=== PATIENT | female | born 1945 | race Caucasian/White ===

== ENCOUNTER → 2016-11-11 | Outpatient (CLI) | payer OTHER, BC ==
[~2016-11-11] MED LIST: ACET-1138 PO; ASCO1CAP3 PO; ASPCH81X PO; ASPEC325 PO; BACL10TA PO; CHOL100010 PO; COLL1CAP PO; DICL50TA3 PO; FRRG PO; GLUC15002 PO; MAGN400T6 PO; MULT1TAB22 PO; SIMV20TA5 PO; SYN100; SYN75 PO; ULT50X PO; VITATAB19 PO; ZINC1CAP PO; [UNRECOGNIZED DRUG - OTHER]
== END | disposition home or self-care (01) ==
LOC: C.RDSM 09:50
PROVIDERS: ATTEND Family Medicine Sports Medicine
DX: M54.5 Low back pain (principal); M25.551 Pain in right hip

== ENCOUNTER → 2016-11-28 | Outpatient (CLI) | payer OTHER, BC ==
--- NOTE | 2016-12-02 12:25 | CODING QUERY MEDICAL NECESSITY ---
SUPPORTING DIAGNOSIS NEEDED A supporting diagnosis is required for the test/procedure performed on this patient in order for us to be reimbursed by the patient's insurance. Please provide a supporting diagnosis for the following test/procedure listed below next to the test name along with your signature. *If there is no additional diagnosis for this patient that would support the following test/procedure please document that below next to the test/procedure. Test(s)/Procedure(s) that require a supporting diagnosis: DOS 11/28 * Bone Density Study DIAGNOSIS: Provider Signature: Date: Thank you Sera Granados Health Information Management Once completed, please kindly fax back to [phone] For questions please call [phone]
== END | disposition home or self-care (01) ==
LOC: C.MAMM 13:59
PROVIDERS: ATTEND Family Medicine Sports Medicine
DX: M84.48XA Pathological fracture, other site, initial encounter for fracture (principal); X58.XXXA Exposure to other specified factors, initial encounter; M85.80 Other specified disorders of bone density and structure, unspecified site; F17.200 Nicotine dependence, unspecified, uncomplicated

== ENCOUNTER → 2017-01-09 | Outpatient (CLI) | payer OTHER, BC ==
[2017-01-09 16:13] LABS: ALT/SGPT 28 U/L (12-78); AST/SGOT 20 U/L (15-37); BLOOD UREA NITROGEN 21 mg/dl (7-18); BUN/CREATININE RATIO 21.2 (10-20); CALCIUM 8.5 mg/dl (8.5-10.1); CARBON DIOXIDE 30 mmol/L (21-32); CHLORIDE 106 mmol/L (98-107); GLUCOSE 84 mg/dl (70-99); POTASSIUM 4.2 mmol/L (3.5-5.1); SODIUM 141 mmol/L (136-145)
[2017-01-09 16:21] LABS: ALB/GLOB RATIO 1.3 (0.9-2); ALKALINE PHOSPHATASE 96 U/L (45-117); CHOLESTEROL 172 mg/dl (0-200); CHOLESTEROL/HDL RATIO 2.5; HDL CHOLESTEROL 70 mg/dl; TRIGLYCERIDES 121 mg/dl (0-150); VERY LOW DENSITY LIPOPROT CALC 24 mg/dl
== END | disposition home or self-care (01) ==
LOC: C.LABSPEC 15:14
PROVIDERS: ATTEND Internal Medicine
DX: E03.9 Hypothyroidism, unspecified (principal); E78.5 Hyperlipidemia, unspecified

== ENCOUNTER → 2017-02-08 | Outpatient (CLI) | payer OTHER, BC ==
--- NOTE | 2017-02-08 16:05 | MAMMOGRAPHY REPORT ---
BILATERAL DIGITAL SCREENING MAMMOGRAM WITH CAD: 02/08/2017 CLINICAL HISTORY: Routine screening. Patient has no complaints. TECHNIQUE: Bilateral CC and MLO views were obtained. Current study was also evaluated with a Comput er Aided Detection (CAD) system. COMPARISON: Comparison is made to exams dated: 12/16/2015 mammogram, 12/24/2013 mammogram, 10/05/2012 mammogram, 10/25/2011 mammogram, 04/20/2011 ultrasound, and 04/20/2011 mammogram - [facility]. BREAST COMPOSITION: The tissue of both breasts is heterogeneously dense, which may obscure small ma sses. FINDINGS: The parenchymal pattern is unchanged. No developing mass, architectural distortion or clu ster of suspicious microcalcifications is seen in either breast. IMPRESSION: ACR BI-RADS CATEGORY 2: BENIGN There is no mammographic evidence of malignancy. A 1 year screening mammogram is recommended. The p atient will receive written notification of the results. Approximately 10% of breast cancers are not detected with mammography. A negative mammographic repor t should not delay biopsy if a clinically suggestive mass is present. Lucie Rodriguez M.D. ay/:02/08/2017 15:51:07 Cotton Ball Bagger: Lisa PEREZ(Evelyn)(Lisa), [facility] letter sent: Normal 1/2 BI-RADS Code: ACR BI-RADS Category 2: Benign
== END | disposition home or self-care (01) ==
LOC: C.MAMM 13:22
PROVIDERS: ATTEND Internal Medicine
DX: Z12.31 Encounter for screening mammogram for malignant neoplasm of breast (principal)

== ENCOUNTER → 2017-03-01 | Outpatient (CLI) | payer OTHER, BC ==
[~2017-03-01] MED LIST changes: +OPTIRAY 320 IV PRN; -SYN75 PO; -VITATAB19 PO
--- NOTE | 2017-03-01 14:04 | DIAGNOSTIC IMAGING REPORT ---
CT OF THE CHEST WITH IV CONTRAST CLINICAL HISTORY: Abnormal chest x-ray. COMPARISON STUDY: Chest x-ray dated 03/01/2017 TECHNIQUE: Following the IV administration of 94 mL of Optiray-320, CT of the thorax was performed from the thoracic inlet to the lung bases. Images are reviewed in the axial, sagittal, and coronal planes. IV contrast was administered without complication. CT DOSE: 413.25 mGycm FINDINGS: Thyroid: Imaged portions of the thyroid gland are normal in appearance. Thoracic aorta: The thoracic aorta is normal in course and caliber, noting standard 3-vessel arch anatomy. No aneurysm or dissection is seen. Pulmonary vasculature: The pulmonary trunk is normal in caliber. There are no central filling defects identified to suggest pulmonary embolus. Note that this examination was not protocoled for the evaluation of pulmonary emboli. HEART: The heart is normal in size and configuration, without pericardial effusion. Lungs and pleural spaces: There is a 4 cm pleural-based airspace opacity within the right middle lobe anteriorly. This contains air bronchograms. Also evident are airspace opacities within the right lower lobe. There is scattered right lower lobe nodules and tree-in-bud opacities. There is subtle left apical tree-in-bud nodularity. In the 12.5 mm irregular bilobed right apical pulmonary nodule Mediastinum: There is a borderline enlarged 1 cm upper right paratracheal/esophageal lymph node. Maeve: There is no evidence of pathologic hilar enlargement Axilla: Clear. Upper abdomen: There is moderate hiatal hernia Skeletal structures: There are no lytic or blastic osseous lesions. IMPRESSION: 1. 4 cm pleural-based airspace opacity within the right middle lobe anteriorly containing air bronchograms 2. Dependent right lower lobe airspace opacities 3. Scattered tree-in-bud opacities most pronounced in the right lower lobe 4. Irregular bilobed 12.5 mm right apical pulmonary nodule 5. Borderline enlarged right upper paratracheal/esophageal lymph node 6. A 6 week follow-up chest CT is recommended subsequent to antibiotic therapy. Electronically signed by: Jacob Tariq M.D. 03/01/2017 2:03 PM Dictated Date/Time: 03/01/2017 1:53 PM
== END | disposition home or self-care (01) ==
LOC: C.CTS 13:21
PROVIDERS: ATTEND Orthopaedic Surgery Sports Medicine
DX: R91.8 Other nonspecific abnormal finding of lung field (principal)

== ENCOUNTER → 2017-03-15 | Outpatient (CLI) | payer OTHER, BC ==
[~2017-03-15] MED LIST changes: -OPTIRAY 320 IV PRN
--- NOTE | 2017-03-15 11:30 | DIAGNOSTIC IMAGING REPORT ---
CHEST 2 VIEWS ROUTINE CLINICAL HISTORY: BRONCHOPNEUMONITIS COMPARISON STUDY: 02/27/2017 FINDINGS: The cardiac and mediastinal contours are normal. There is no evidence of focal pulmonary consolidation. There is no evidence of failure. No pleural effusions are visualized.[ There is a retrocardiac opacity consistent with a hiatal hernia. There is been near complete resolution of the previous described right perihilar airspace opacities IMPRESSION: No active disease in the chest. Electronically signed by: Jacob Tariq M.D. 03/15/2017 11:28 AM Dictated Date/Time: 03/15/2017 11:27 AM
== END | disposition home or self-care (01) ==
LOC: C.RAD 10:51
PROVIDERS: ATTEND Internal Medicine
DX: J18.0 Bronchopneumonia, unspecified organism (principal)

== ENCOUNTER 2017-03-23 05:35 | Inpatient (IN) | payer OTHER, BC ==
[2017-02-27 09:12] VITALS: Ht 165.1 cm; Wt 67.3 kg
--- NOTE | 2017-02-27 09:51 | PAT Medication Instructions ---
Service Date February 27, 2017. Current Home Medication List Ascorbic Acid (Vitamin C), 1,000 MG PO DAILY AT NOON Aspirin (Aspirin Chewable), 81 MG PO DAILY AT NOON Baclofen (Lioresal), 10 MG PO TID PRN for Pain Cholecalciferol (Vitamin D), 1 TAB PO DAILY AT NOON Ndefniyf-Gvwmlujtwvb-Torzkfkkj (Hyaluronic Acid), 100 MG PO QAM Iqkjfmsc-Ipqclejlgpm-Uhjyffobp (Hyaluronic Acid), 100 MG PO QPM Diclofenac (Voltaren), 1-2 TAB PO Q8 PRN for INFLAMMATION Vylcbutjkcv-Wkufizfurul-Lpt C- (Glucosamine 1500 Complex), 1 TAB PO QPM Levothyroxine Sodium (Synthroid), Unknown Dose QAM Multiple Vitamins W/ Minerals (One Daily For Women), 1 TAB PO DAILY AT NOON Simvastatin (Zocor), 20 MG PO QPM Medication Instructions For Your Scheduled Surgery Aspirin (Aspirin Chewable), 81 MG PO DAILY AT NOON (okay to continue per surgeon ) - Check with surgeon for instructions: Diclofenac (Voltaren), 1-2 TAB PO Q8 PRN for INFLAMMATION - Hold the following medications 2 weeks prior to surgery: Ewkqswhnsdc-Vtynslmkhaj-Vti C- (Glucosamine 1500 Complex), 1 TAB PO QPM - Hold the following medications the morning of surgery: Multiple Vitamins W/ Minerals (One Daily For Women), 1 TAB PO DAILY AT NOON Cholecalciferol (Vitamin D), 1 TAB PO DAILY AT NOON Ascorbic Acid (Vitamin C), 1,000 MG PO DAILY AT NOON Baclofen (Lioresal), 10 MG PO TID PRN for Pain Tnguieii-Cpwvekfmhsp-Iycbzxxok (Hyaluronic Acid), 100 MG PO QAM - Take the following medications the morning of surgery with a sip of water: Levothyroxine Sodium (Synthroid), Unknown Dose QAM - Take the following medications as scheduled the night before surgery: Simvastatin (Zocor), 20 MG PO QPM Baclofen (Lioresal), 10 MG PO TID PRN for Pain Kuutokwt-Xldtwgjzdfq-Mutwvzeot (Hyaluronic Acid), 100 MG PO QPM If you have any questions please call us at [phone] (Christy Varghese PA-C) or [phone] or [phone]
--- NOTE | 2017-02-27 10:28 | DIAGNOSTIC IMAGING REPORT ---
CHEST PREADMISSION(PA/LAT) CLINICAL HISTORY: Preoperative chest COMPARISON STUDY: February 2008 FINDINGS: The cardiac and mediastinal contours remain stable. There is a retrocardiac opacity consistent with a hiatal hernia. Since the prior study, the patient has developed a nodular airspace opacity within the anterior inferior aspect of the right upper lobe measuring 26 mm. In the absence of symptoms of a pneumonia, CT scanning should be considered in follow-up. No pleural effusions are visualized.[ IMPRESSION: Interval development of a nonspecific nodular airspace opacity within the anterior inferior aspect of the right upper lobe. CT scanning should be considered in follow-up. Electronically signed by: Jacob Tariq M.D. 02/27/2017 10:27 AM Dictated Date/Time: 02/27/2017 10:25 AM
[2017-02-27 10:54] LABS: BASO % 0.7 %; BASO ABS # 0.06 K/uL (0-0.2); COMPLETE YES; EOS % 1.1 %; HEMATOCRIT 38.6 % (37-47); IG% 0.1 %; LYMPH % 24.4 %; LYMPH ABS # 2.19 K/uL (1.2-3.4); MEAN CELL VOLUME 97.5 fL (80-100); MEAN CORPUSCULAR HEMOGLOBIN 31.3 pg (25-34); MEAN CORPUSCULAR HGB CONC 32.1 g/dl (32-36); MEAN PLATELET VOLUME 9.8 fL (7.4-10.4); MONO % 8.5 %; NEUT % 65.2 %; PLATELET COUNT 439 K/uL (130-400); RED BLOOD COUNT 3.96 M/uL (4.2-5.4); WHITE BLOOD COUNT 8.96 K/uL (4.8-10.8)
[2017-02-27 11:03] LABS: BUN/CREATININE RATIO 17.8 (10-20); C-REACTIVE PROTEIN 3.62 mg/dl (0-0.29); CREATININE 0.82 mg/dl (0.60-1.20); POTASSIUM 4.3 mmol/L (3.5-5.1)
[2017-02-27 11:14] LABS: CALCIUM 9.1 mg/dl (8.5-10.1)
[2017-02-27 11:15] LABS: PROTHROMBIN TIME (PATIENT) 10.7 SECONDS (9.0-12.0)
--- NOTE | 2017-03-18 20:21 | HISTORY & PHYSICAL EXAMINATION ---
DATE OF ADMISSION: 03/23/2017 CHIEF COMPLAINTS: Right hip pain. HISTORY OF PRESENT ILLNESS: A 72-year-old female from [place] who presents for surgical treatment of her right hip. This all had started back in May of this past year. She developed pretty significant thigh and groin pain. She saw Dr. Boyle at that point and felt it was a muscle spasm. She was put on some prednisone, diclofenac and baclofen. She continued to have problems on and off. She has been on different medicines trying to manage this. She was diagnosed with Lyme disease in September and underwent a month of treatment for that. Despite this, she has developed progressive increased pain and discomfort in the right hip. She has been pretty miserable with this. She describes groin pain and thigh pain. She had an intra-articular hip joint injection, which helped her significantly but her pain returned. X-rays show advanced right hip DJD. She would like to proceed with total hip arthroplasty. Of note, the patient did have a recent history of some bronchopneumonitis managed by Dr. Boyle. This is cleared up and she has been cleared for surgery. PAST MEDICAL HISTORY: 1. Elevated cholesterol. 2. Hypothyroidism. 3. Spinal arthritis. 4. Colon cancer, status post resection without recurrence. PREVIOUS SURGERIES: Colon resection. ALLERGIES: None. MEDICATIONS: Include: 1. Levothyroxine. 2. Simvastatin. 3. Ibuprofen. SOCIAL HISTORY: A 72-year-old female patient. She is . She is from [place]. Medical doctor is Dr. Boyle. REVIEW OF SYSTEMS: Negative for diabetes. She does have a history of colon cancer in remission. No chest pain, shortness of breath. No history of DVT or PE. PHYSICAL EXAMINATION: GENERAL: Shows a pleasant, thin, elderly female. She looks to be in excellent health. HEENT: Benign. NECK: Supple. No lymphadenopathy. LUNGS: Clear to auscultation. HEART: Regular rate and rhythm. ABDOMEN: Soft, nontender, nondistended. EXTREMITIES: Grossly neurovascularly intact as follows. Examination of the right hip and leg reveals the patient walks independently, but with a bit of a limp. Leg lengths clinically appear pretty equal. She has pain with any type of hip motion. Internal rotation to neutral at best. She is neurologically intact. Negative straight leg raise. X-RAYS: X-rays of the right hip reveal advanced right hip DJD. She has complete loss of joint space. Not a lot of osteophyte formation. MRI of the hip from [facility] dated 11/14/2016 reviewed. It shows significant arthritis in her hip. She has edema in superior aspect of femoral head into the intertrochanteric region. She has a hip joint effusion. No signs of AVN, but more like degenerative arthritis. ASSESSMENT: A 72-year-old female with a 7-month history of markedly increased right hip pain, discomfort consistent with advanced hip arthritis. She has failed conservative treatment and would like to have her hip replaced. She has had recent bout of bronchopneumonitis which is cleared on treatment by Dr. Boyle. She also has history of Lyme disease, which has been treated. PLAN: We are going to take her to the operating room and do a right total hip replacement. The risks and benefits of this procedure were explained to the patient, included but not limited to DVT, PE, , infection, neurological injury, vascular injury, bleeding problems, pain, limited range of motion, stiffness, failure to relieve symptoms, incomplete relief of symptoms, need for further surgery in the future, leg length inequality, nerve palsy, dislocation, fractures. The patient understands and desires to proceed. Informed consent was obtained. The patient had a preoperative workup. Chest x-ray initially showed some nodularity and she had a CT scan which confirmed this. She was treated for this bronchopneumonitis and chest x-ray is normalized. Labs are all pretty normal, but her sed rate and C-reactive protein were elevated at the time when she had this bronchopneumonitis, but that is probably the source. Her infection is cleared. She has been cleared for surgery. She is hoping to be discharged to home using [facility]. Her is going to assist in her care. JOSE
[2017-03-23] VITALS (9 sets, daily range): BP systolic 114–144; BP diastolic 58–90; PULSE 57–67; TEMP 36.3–36.8; O2SAT 95–100
[~2017-03-23] VITALS: Ht 165.1 cm; Wt 67.3 kg
[~2017-03-23 05:35] MED LIST changes: -ACET-1138 PO; -ASPEC325 PO; -FRRG PO; -MAGN400T6 PO; -ULT50X PO; -ZINC1CAP PO; -[UNRECOGNIZED DRUG - OTHER]
[2017-03-23] MEDS ORDERED: LACTATED RINGER'S 1000ML 1,000 ML IV SCH (06:00)
[2017-03-23] MEDS ORDERED: LACTATED RINGER'S 1000ML IV SCH (06:00)
[2017-03-23] MEDS ORDERED: ACETAMINOPHEN 500 MG TAB PO SCH (06:00)
[2017-03-23] MEDS ORDERED: CEFAZOLIN 2000 MG/60 ML D5W 60 ML IV SCH (06:00)
[2017-03-23] MEDS ORDERED: FAMOTIDINE 20 MG TAB PO SCH (06:00)
[2017-03-23] MEDS ORDERED: METOCLOPRAMIDE HCL 10 MG TAB PO SCH (06:00)
[2017-03-23] MEDS ORDERED: SCOPOLAMINE 1.5 MG TDSY TD SCH (06:00)
[2017-03-23] MEDS ORDERED: TRANEXAMIC ACID INJ 1,000 MG in SODIUM CHLORIDE 0.9% 100ML 100 ML IV SCH ×2 (06:00→14:00)
[2017-03-23] MEDS ORDERED: GABAPENTIN 300 MG CAP PO SCH (06:00)
[2017-03-23] MEDS ORDERED: LACTATED RINGER'S 1000ML 500 ML IV ONE (06:00)
[2017-03-23] MEDS ORDERED: [UNRECOGNIZED DRUG - OTHER] (06:09)
[2017-03-23] MEDS ORDERED: ZINC1CAP PO (06:09)
[2017-03-23] MEDS ORDERED: MAGN400T6 PO (06:09)
[2017-03-23] MEDS ORDERED: BUPIVACAINE 0.5 % 5 MG/1 ML PF 10ML VIAL ONE (06:38)
--- NOTE | 2017-03-23 06:51 | History & Physical Bridge Note ---
H&P Re-Evaluation Bridge Note: I have examined the patient, reviewed the History & Physical and in the interval since the performance of the History & Physical I have noted the following changes of clinical significance: No changes noted
[2017-03-23] MEDS ORDERED: BACITRACIN 50000 UNIT VIAL ONE (06:55)
[2017-03-23] MEDS ORDERED: BUPIVACAINE/EPINEPHRINE 0.5% MPF 1:200,000 30 ML VIAL ONE (06:55)
[2017-03-23] MEDS ORDERED: FENTANYL CITRATE INJ 50 MCG/1 ML 2 ML VIAL ONE (06:59)
[2017-03-23] MEDS ORDERED: MIDAZOLAM HCL 1 MG/ML 2ML VIAL ONE (06:59)
[2017-03-23] MEDS ORDERED: KETAMINE HCL INJ 50 MG/ML 10 ML VIAL ONE (07:08)
[2017-03-23] MEDS ORDERED: PROPOFOL IV EMULSION 10 MG/ML 20 ML VIAL IV ONE (07:57)
[2017-03-23] MEDS ORDERED: PHENYLEPHRINE 100MCG/ML 5ML SYR ONE (07:57)
[2017-03-23] MEDS ORDERED: EpHEDrine SULFATE 50MG/5ML SYR ONE (07:57)
[2017-03-23] MEDS ORDERED: LIDOCAINE HCL 2% 2 ML VIAL (20MG/ML) ONE (07:57)
[2017-03-23] MEDS ORDERED: HYDROmorphone INJ 2 MG/ML SYR/VIAL IV PRN (08:45)
[2017-03-23] MEDS ORDERED: EpHEDrine SULFATE INJ 50 MG/ML AMP IV PRN (08:45)
[2017-03-23] MEDS ORDERED: PHENYLEPHRINE 100MCG/ML 5ML SYR IV PRN (08:45)
[2017-03-23] MEDS ORDERED: ONDANSETRON INJ 2 MG/ML 2 ML VIAL IV PRN ×2 (08:45→09:00)
[2017-03-23] MEDS ORDERED: ATROPINE SULFATE 0.1 MG/ML 5ML SYR IV PRN (08:45)
--- NOTE | 2017-03-23 08:55 | [facility] Post Operative Brief Note ---
Immediate Operative Summary Operative Date March 23, 2017. Pre-Operative Diagnosis Advanced right hip degenerative joint disease Post-Operative Diagnosis Same as preop Procedure(s) Performed Right total hip arthroplasty, uncemented Surgeon Dr. Tovar Elementary Educator Surgeon(s) Shadia Henson PA-C Estimated Blood Loss 300 cc Findings Right Hip DJD Fluids (cc crystalloids) 2000 cc Specimens A: right femoral head Drains None Anesthesia Spinal Complication(s) None Disposition Recovery Room / PACU
[2017-03-23] MEDS ORDERED: ALUMINUM/MAGNESIUM/SIMETH (MAALOX MAX) 30 ML UDC PO PRN (09:00)
[2017-03-23] MEDS ORDERED: ZOLPIDEM TARTRATE 5 MG TAB PO PRN (09:00)
[2017-03-23] MEDS ORDERED: TRAMADOL HCL 50 MG TAB PO PRN (09:00)
[2017-03-23] MEDS ORDERED: BACLOFEN 10 MG TAB PO PRN (09:00)
[2017-03-23] MEDS ORDERED: HYDROmorphone INJ 1 MG/ML SYR IV PRN (09:00)
[2017-03-23] MEDS ORDERED: METOCLOPRAMIDE HCL INJ 5 MG/ML 2 ML VIAL IV PRN (09:00)
[2017-03-23] MEDS ORDERED: MAGNESIUM HYDROXIDE SUSP 30 ML UDC PO PRN (09:00)
[2017-03-23] MEDS ORDERED: SILVER SULFADIAZINE 1% CR 50 GM JAR EXT PRN (09:00)
--- NOTE | 2017-03-23 09:38 | DIAGNOSTIC IMAGING REPORT ---
SINGLE VIEW PELVIS; SINGLE VIEW RIGHT HIP CLINICAL HISTORY: Postoperative examination. FINDINGS: An AP portable view of the hips and pelvis with a crosstable lateral portable view of the right hip are obtained. A bipolar right hip arthroplasty is in near-anatomic alignment. A single cortical lag screw transfixes the acetabular cup. No acute fracture is identified. There are expected postoperative changes overlying the right hip including skin clips, subcutaneous gas, and soft tissue swelling. Mild arthritic change is present in the left hip and the sacroiliac joints. A Rebolledo catheter is in place. IMPRESSION: Expected postoperative findings status post right hip arthroplasty. No acute fracture is seen. Electronically signed by: Yoan Mckeon M.D. 03/23/2017 9:37 AM Dictated Date/Time: 03/23/2017 9:36 AM
--- NOTE | 2017-03-23 09:42 | OPERATIVE REPORT ---
DATE OF OPERATION: 03/23/2017 SURGEON: Dr. Angel Tovar. POULTRY HUSBANDRY WORKER: ARASH Santos PREOPERATIVE DIAGNOSIS: Right hip degenerative joint disease. POSTOPERATIVE DIAGNOSIS: Same. PROCEDURE PERFORMED: Right uncemented total hip arthroplasty. COMPLICATIONS: None. ESTIMATED BLOOD LOSS: 300 mL. FLUID REPLACEMENT: 2000 mL crystalloid fluid replacement. ANESTHESIA: Spinal. DRAINS: None. SPECIMENS: Right femoral head sent for pathology. OPERATIVE INDICATIONS: The patient is a 72-year-old female who has had about a year history of increasing right hip pain and discomfort and she has become more disabling. She has been through extensive conservative treatment including pain clinic referral, injections and oral medicines. She got marked relief from the intraarticular hip joint injection. She has got known spine arthritis as well. X-rays showed advanced hip DJD. The patient elected to proceed with operative treatment. OPERATIVE FINDINGS: Operative findings revealed advanced right hip DJD. She had grade 4 rpli-lq-clml disease of the femoral head and acetabulum. Not much in the way of eburnation. She had a moderate sized joint effusion. OPERATIVE IMPLANTS: Operative implants consisted of: 1. Biomet G7 size 52-mm acetabular shell. 2. A 6.5 cancellous acetabular screws, 1 at 35 mm length and 1 at 20 mm in length. 3. An apex hole eliminator. 4. Highly cross-linked polyethylene liner with 52 mm outer diameter and 36 mm inner diameter. 5. A DePuy size 13.5 small stature AML femoral stem. 6. A +1.5/36 mm metal articular ball. OPERATIVE PROCEDURE: The patient was taken to the operating room, identified and placed on the operating table in the supine position. All contact areas were appropriately padded. IV antibiotics were provided by anesthesia team. A spinal anesthetic had been implemented in the holding area. Rebolledo catheter was placed in sterile fashion. The patient was then placed in the right lateral decubitus position. An axillary roll was placed. Stulberg hip positioner was used for positioning. The right hip and leg were then prepped and draped in the usual sterile fashion. Posterolateral approach to the right hip was then performed through a curvilinear incision centered over the greater trochanter. Sharp dissection was carried through the subcutaneous tissues down to the level of the IT band and gluteal fascia. The IT band and gluteal fascia were incised longitudinally in line with the skin incision. The underlying greater trochanteric bursa was excised. The piriformis and external rotators were identified. Upon doing this, there was a large vein, which ruptured in the posterior aspect of the hip posteriorly. We spent some time trying to very carefully cauterize this to get hemostasis. It was a vein. Great care was taken to try and protect the sciatic nerve at all times, but it was posterior in that area. There were no signs of any nerve irritation during cauterizing this. Once hemostasis was assured, I then incised the external rotators and the posterior hip capsule as a single layer. The hip was internally rotated and dislocated. Great care was taken throughout the procedure to protect the sciatic nerve at all times. The femur was retracted anteriorly. Attention was then drawn to the acetabulum. The acetabulum labrum was excised. The pulvinar fat was excised. Sequential reaming of the acetabulum was then performed beginning with size 45 and progressing up to a 51. A 52-mm Biomet G7 acetabular shell was then placed in about 40 degrees of lateral opening and about 25 degrees of anteversion. I did place it in a little more anteversion as she had pretty good hip motion preoperatively and I was concerned with stability. Some anterior osteophytes were removed. A trial liner was placed. Attention was then drawn to the femur. The proximal femur was entered with cookie cutter followed by canal finder and lateralizing reamer. Sequential reaming of the femur was then performed beginning with a size 10 and progressing up to a 13. We started getting pretty good chatter at 12. I then broached beginning with a size 10.5 small broach and progressing up to 13.5 small broach. We got excellent fit with this. We then trialed the hip. The +5 ball seemed a bit tight. The +1.5 articular ball provided full stability in full extension and external rotation, flexion to 90 degrees, and internal rotation to 70 degrees. I elected to use these implants. I did use a slightly larger head than the usual in order to maximize her stability. Attention was drawn toward placing the permanent implants. All trial implants were removed. An apex hole eliminator was placed. A highly cross-linked polyethylene liner was placed. A 13.5 small stature AML femoral stem was placed. We got excellent scratch fit. A +1.5/36 mm articular ball was placed. Hip was located and once again found to be stable. The attention was then drawn toward closing. The wound was irrigated with copious amounts of normal saline. I did inject locally with 60 mL of 0.5% Marcaine with epinephrine. The posterior capsule was then repaired with #2 Ti-Cron sutures. The external rotators were attached to this. The IT band and gluteal fascia were then closed with #1 PDS suture in a running fashion. Subcutaneous tissues were closed in 2 layers with the deep layer #1 Vicryl suture and the subcutaneous tissues with 2-0 Dexon suture in a buried interrupted fashion. Skin was closed with skin miguel. The leg was then cleaned and dried and a sterile dressing of Xeroform, 4 x 4's, ABD pad and foam tape was applied. The patient then transferred to the recovery room in stable condition. The patient tolerated the procedure well with no complications. All needle and sponge counts were correct at the end of the operation. I attest to the content of the Intraoperative Record and any orders documented therein. Any exceptio ns are noted below.
--- NOTE | 2017-03-23 09:44 | Anesthesiology Progress Note ---
Anesthesia Post Op Note Date & Time March 23, 2017 at 09:43 Vital Signs Pain Intensity: 0 Vital Signs Past 12 Hours Date Time Temp Pulse Resp B/P Pulse Ox O2 Delivery O2 Flow Rate FiO2 03/23/17 09:38 58 19 03/23/17 09:38 58 19 100 03/23/17 09:36 107/51 03/23/17 09:33 59 17 03/23/17 09:33 58 17 100 03/23/17 09:31 115/58 03/23/17 09:28 61 14 100 03/23/17 09:28 61 14 03/23/17 09:26 124/48 03/23/17 09:23 68 20 96 03/23/17 09:23 67 20 03/23/17 09:22 62 14 03/23/17 09:22 62 14 100 03/23/17 09:21 142/67 03/23/17 09:17 62 13 100 03/23/17 09:17 62 13 03/23/17 09:16 135/69 03/23/17 09:12 62 15 03/23/17 09:12 63 15 87 03/23/17 09:11 130/61 03/23/17 09:07 60 19 03/23/17 09:07 60 19 100 03/23/17 09:06 123/60 03/23/17 09:03 61 17 03/23/17 09:03 63 17 100 03/23/17 09:01 107/65 03/23/17 08:58 61 17 100 03/23/17 08:58 61 17 03/23/17 08:56 126/63 03/23/17 08:53 59 17 100 03/23/17 08:53 60 17 03/23/17 08:51 124/63 03/23/17 08:49 130/63 03/23/17 08:48 62 13 100 03/23/17 08:48 62 13 03/23/17 08:48 36.1 61 18 130/63 100 Mask 10 03/23/17 06:13 36.8 67 18 144/81 97 Room Air Notes Mental Status: alert / awake / arousable, participated in evaluation Pt Amnestic to Procedure: Yes Nausea / Vomiting: adequately controlled Pain: adequately controlled Airway Patency, RR, SpO2: stable & adequate BP & HR: stable & adequate Hydration State: stable & adequate Anesthetic Complications: no major complications apparent
[2017-03-23] MEDS ORDERED: TRAMADOL HCL 50 MG TAB ONE (11:08)
[2017-03-23] MEDS: MULTIVITAMIN TAB PO SCH (11:09)
[2017-03-23] MEDS: PANTOprazole SOD 40 MG TAB PO SCH (11:10)
[2017-03-23] MEDS: MAGNESIUM OXIDE 400 MG TAB PO SCH (11:13)
[2017-03-23] MEDS: CHOLECALCIFEROL 1000 INTER.UNIT TAB PO SCH (11:14)
[2017-03-23] MEDS: CEROVITE ADV FORMULA TAB PO SCH (11:14)
[2017-03-23] MEDS ORDERED: PNEUMOCOCCAL ADMINISTRATION CHARGE ONE (11:45)
[2017-03-23] MEDS ORDERED: PNEUMOCOCCAL POLYSACCHARIDES 25 MCG/0.5 ML VIAL/SYR IM. ONE (11:45)
[2017-03-23] MEDS: ZINC SULFATE 220 MG CAP PO SCH (11:56)
[2017-03-23] MEDS: D5W AND 1/2NSS + 20MEQ KCL 1,000 ML IV SCH ×2 (12:02→21:02)
[2017-03-23] MEDS: KETOROLAC TROMETHAMINE 15 MG/ML VIAL IV. SCH ×2 (12:13→18:19)
[2017-03-23] MEDS: ASCORBIC ACID 500 MG TAB PO SCH (12:34)
[2017-03-23] MEDS: FERROUS GLUCONATE 324 MG TAB PO SCH ×2 (12:34→18:20)
[2017-03-23] MEDS: ACETAMINOPHEN 500 MG TAB PO SCH ×2 (13:26→22:00)
--- NOTE | 2017-03-23 15:31 | PROGRESS NOTE ---
DATE: 03/23/2017 SUBJECTIVE: A 72-year-old female postop from a right hip replacement. She is doing pretty well. Pain is controlled. No chest pain or shortness of breath. Not feeling dizzy or lightheaded. OBJECTIVE: VITAL SIGNS: Temperature is 36.4. Vital signs stable. GENERAL: Physical examination reveals a healthy pleasant elderly female. She is sitting up in bed and looks pretty comfortable. LUNGS: Clear to auscultation. HEART: Regular rate and rhythm. ABDOMEN: Soft, nontender, and nondistended. EXTREMITIES: Grossly neurovascularly intact except as follows: Examination of the right leg reveals the dressing to be clean, dry and intact. Leg lengths were equal. Hip is located. She can dorsiflex and plantarflex her foot appropriately. She is neurologically intact. X-RAYS: X-rays of the right hip from the recovery room were reviewed. It shows a right uncemented total hip arthroplasty. Components looked to be in good position. No signs of problems. ASSESSMENT: A 72-year-old gentleman postop from a right total hip replacement, doing well. Pain is controlled. Hip is located. She is neurologically intact. PLAN: 1. DVT prophylaxis including thigh-high TEDs, SCDs, and aspirin twice a day. 2. PT/OT. Weightbearing as tolerated. Right total hip protocol. 3. Pain control, doing well with current pain regimen. 4. IV antibiotics x24 hours. 5. Disposition: Plan to discharge to home with some home health once adequately recovered. JOSE
[2017-03-23] MEDS: CHECK SCOPOLAMINE PATCH PLACEMENT SCH (17:11)
[2017-03-23] MEDS: CEFAZOLIN IV 1,000 MG in DEXTROSE 5% 50ML 50 ML IV SCH (17:11)
[2017-03-23] MEDS ORDERED: GLUCOSAMINE CHONDROITIN VIT C PO SCH (21:00)
[2017-03-23] MEDS: ASPIRIN 325 MG ECTAB PO SCH (21:01)
[2017-03-23] MEDS: SENNA 8.6 MG TAB PO SCH (21:01)
[2017-03-23] MEDS: DOCUSATE SODIUM 100 MG CAP PO SCH (21:01)
[2017-03-23] MEDS: SIMVASTATIN 20 MG TAB PO SCH (21:02)
[2017-03-24] MEDS: CHECK SCOPOLAMINE PATCH PLACEMENT SCH ×3 (00:14→15:45)
[2017-03-24] MEDS: CEFAZOLIN IV 1,000 MG in DEXTROSE 5% 50ML 50 ML IV SCH (00:15)
[2017-03-24] MEDS: KETOROLAC TROMETHAMINE 15 MG/ML VIAL IV. SCH ×4 (00:16→17:53)
[2017-03-24 02:58] VITALS: BP 157/73; PULSE 69; TEMP 36.8; O2SAT 95
[2017-03-24] MEDS: ACETAMINOPHEN 500 MG TAB PO SCH ×3 (05:31→21:27)
[2017-03-24 06:30] LABS: BASO % 0.5 %; BASO ABS # 0.03 K/uL (0-0.2); COMPLETE YES; EOS % 3.4 %; HEMATOCRIT 31.7 % (37-47); LYMPH % 28.7 %; LYMPH ABS # 1.86 K/uL (1.2-3.4); MEAN CELL VOLUME 98.4 fL (80-100); MEAN CORPUSCULAR HEMOGLOBIN 32.9 pg (25-34); MEAN CORPUSCULAR HGB CONC 33.4 g/dl (32-36); MEAN PLATELET VOLUME 10.2 fL (7.4-10.4); MONO % 8.2 %; NEUT % 59.2 %; PLATELET COUNT 203 K/uL (130-400); RED BLOOD COUNT 3.22 M/uL (4.2-5.4); WHITE BLOOD COUNT 6.49 K/uL (4.8-10.8)
[2017-03-24] MEDS: D5W AND 1/2NSS + 20MEQ KCL 1,000 ML IV SCH (06:45)
[2017-03-24 07:01] LABS: BUN/CREATININE RATIO 19.9 (10-20); CALCIUM 7.7 mg/dl (8.5-10.1); CREATININE 0.86 mg/dl (0.60-1.20); POTASSIUM 4.7 mmol/L (3.5-5.1)
[2017-03-24 07:09] VITALS: BP 144/74; PULSE 63; TEMP 36.7; O2SAT 95
[2017-03-24] MEDS ORDERED: FRRG PO (07:21)
[2017-03-24] MEDS ORDERED: ULT50X PO (07:21)
[2017-03-24] MEDS ORDERED: ACET-1138 PO (07:21)
[2017-03-24] MEDS ORDERED: ASPEC325 PO (07:21)
--- NOTE | 2017-03-24 07:22 | Discharge Instructions ---
Discharge Instructions Date of Service March 24, 2017. Admission Reason for Admission: Right Hip Pain/Degenerative Joint Disease Discharge Discharge Diagnosis / Problem: Right Hip Replacement Discharge Goals Goal(s): Decrease discomfort, Improve function, Increase independence, Improve disease control, Therapeutic intervention Activity Recommendations Activity Limitations: per Instructions/Follow-up section (Total Hip PRecautions ) Weightbearing Status: Right weightbearing . Instructions / Follow-Up Instructions / Follow-Up ACTIVITY RECOMMENDATIONS: Physical Therapy: * Aggressive physical therapy is not usually needed. You will learn to take care of yourself safely and walk. * Follow the "Hip Precautions Instructions." * In some cases, the social science professor at the hospital will arrange to have a therapist come to your house for the first couple of weeks to help you learn these skills. * You need to practice on your own or with the help of a family member as needed. * When you learn these skills, most of the therapy can be done on your own. Home Exercise: * You were shown a series of exercises in the hospital. Do these exercises three to four times each day including the exercises you were shown in physical therapy. Walking: * Get up and walk several times each day. For the first four weeks, try not to stand or walk for more than one hour at a time. If you do stand or walk for more than one hour, you will not hurt anything, but your leg will likely swell. * As you feel comfortable, you may change from the walker or crutches to a cane and then to independent walking. MEDICATIONS: New Medicine: * You will likely be taking one or more of these medicines: 1. Tramadol - Take, as directed, when you need it, every four to six hours to control your pain. 2. Iron Sulfate - Take three times each day for the month after surgery to help you replace the blood lost during surgery. 3. Aspirin - Thins your blood to lessen the chance of forming a blood clot. * The most common side effects of pain medicine and iron are nausea and constipation. If nausea or constipation is too much of a problem or if you have any questions about your new medicines or doses, call [facility] at . We will try to help you manage these issues. VERY IMPORTANT TO READ AND REVIEW" Pain: * The immediate post-operative period after hip replacement surgery is often quite painful. * You are given a prescription for pain medicine. You should take it, as directed, when you need it, especially before physical therapy and before going to bed. Pain that interferes with sleep is very common and can last several months. * You will likely need pain medicine for the first two to four weeks. It will not stop all of the pain. The pain will lessen and as you feel better, you may change to milder pain medicine such as Tylenol. * The most common side effects of pain medicine are nausea and constipation, so don't take more than you need. SPECIAL CARE INSTRUCTIONS: TEDs/Elastic Stockings: * The white elastic stockings help limit swelling and prevent blood clots from forming in your legs. The more you wear them, the more they work. * Wear them for six weeks. Prevention of Infection: * Take antibiotics one hour before any dental cleaning, dental work, urological procedure, gastrointestinal procedure or any invasive surgery in order to prevent your new joint from getting infected. * You may get the antibiotics from the doctor performing the procedure or you may call our office at before and we will call in a prescription to the pharmacy of your choice. Things to Watch For: * Drainage from the incision site that occurs more than one week after your surgery. * Severely increased leg pain or swelling. * Increased redness at the incision site. * Fever above 102 degrees Fahrenheit. * Unusual chest pain or shortness of breath. * Unusual pain or burning with urination. Call [facility] at with any of the above problems or if you have any questions about your medicines or recovery. FOLLOW UP VISIT: Make an appointment to see your doctor for approximately two weeks after surgery for a progress check and staple removal by calling the office at . Current Hospital Diet Patient's current hospital diet: Regular Diet Discharge Diet Recommended Diet: Regular Diet Procedures Procedures Performed: Right total hip arthroplasty, uncemented Pending Studies Studies pending at discharge: no Laboratory Results Lipid Panel Test 01/09/17 13:40 Range/Units Triglycerides Level 121 0-150 mg/dl Cholesterol Level 172 0-200 mg/dl HDL Cholesterol 70 mg/dl LDL Cholesterol Direct 90 mg/dl Cholesterol/HDL Ratio 2.5 LDL Cholesterol, Calculated mg/dl Medical Emergencies . Who to Call and When: Medical Emergencies: If at any time you feel your situation is an emergency, please call 911 immediately. . Non-Emergent Contact Non-Emergency issues call your: Surgeon . "Provider Documentation" section prepared by Angel Tovar. . VTE Core Measure Inpt VTE Proph given/why not?: Other Anticoagulation, T.E.D. Stockings, SCD's
--- NOTE | 2017-03-24 07:46 | PROGRESS NOTE ---
DATE: 03/24/2017 DATE: 03/24/2017. SUBJECTIVE: A 72-year-old white female postop day 1 from right total hip replacement. She is doing pretty well. Pain has been managed. No chest pain or shortness of breath. Not feeling dizzy or lightheaded. OBJECTIVE: VITAL SIGNS: Temperature is 36.8. Vital signs stable. PHYSICAL EXAMINATION: GENERAL: Reveals a pleasant elderly female. She is lying in bed, looks pretty comfortable. EXTREMITIES: Examination of the right hip reveals leg lengths to be equal. Dressing is clean, dry and intact. Thigh is soft and supple. She is neurologically intact. LABORATORY DATA: Hemoglobin 10.6. Hematocrit 31.7. Electrolytes are pending. ASSESSMENT: A 72-year-old white female postop day 1 from a right total hip replacement, doing pretty well. Pain is controlled. PLAN: 1. DVT prophylaxis including thigh-high TEDs, SCDs, and aspirin twice a day. 2. PT/OT. Weightbearing as tolerated. Right total hip protocol. 3. Pain control. Doing pretty well with current pain regimen. We will try and manage using as little narcotic as possible. 4. Disposition: Plan to discharge to home with some home health once adequately recovered.
--- NOTE | 2017-03-24 08:12 | Anesthesiology Progress Note ---
Anesthesia Post Op Note Date & Time March 24, 2017 at 08:12 Vital Signs Pain Intensity: 1.0 Vital Signs Past 12 Hours Date Time Temp Pulse Resp B/P Pulse Ox O2 Delivery O2 Flow Rate FiO2 03/24/17 07:26 Room Air 03/24/17 07:09 36.7 63 17 144/74 95 Room Air 03/24/17 02:58 36.8 69 18 157/73 95 Room Air 03/23/17 23:40 Room Air 03/23/17 23:10 36.8 63 17 136/90 98 Room Air 03/23/17 20:18 36.8 58 16 114/58 95 Room Air Notes Mental Status: alert / awake / arousable, participated in evaluation Pt Amnestic to Procedure: Yes Nausea / Vomiting: adequately controlled Pain: adequately controlled Airway Patency, RR, SpO2: stable & adequate BP & HR: stable & adequate Hydration State: stable & adequate Neuraxial Anesthesia: was administered, sensory block resolved Anesthetic Complications: no major complications apparent
[2017-03-24] MEDS: CEROVITE ADV FORMULA TAB PO SCH (08:57)
[2017-03-24] MEDS: MULTIVITAMIN TAB PO SCH (08:57)
[2017-03-24] MEDS: ZINC SULFATE 220 MG CAP PO SCH (08:57)
[2017-03-24] MEDS: DOCUSATE SODIUM 100 MG CAP PO SCH ×2 (08:57→21:27)
[2017-03-24] MEDS: CHOLECALCIFEROL 1000 INTER.UNIT TAB PO SCH (08:57)
[2017-03-24] MEDS: PANTOprazole SOD 40 MG TAB PO SCH (08:57)
[2017-03-24] MEDS: FERROUS GLUCONATE 324 MG TAB PO SCH ×3 (08:58→17:52)
[2017-03-24] MEDS: ASPIRIN 325 MG ECTAB PO SCH ×2 (08:58→21:27)
[2017-03-24] MEDS: MAGNESIUM OXIDE 400 MG TAB PO SCH (08:58)
[2017-03-24] MEDS: ASCORBIC ACID 500 MG TAB PO SCH (12:27)
[2017-03-24 15:41] VITALS: BP 125/78; PULSE 72; TEMP 36.8; O2SAT 97
[2017-03-24] MEDS: SENNA 8.6 MG TAB PO SCH (21:00)
[2017-03-24] MEDS: SIMVASTATIN 20 MG TAB PO SCH (21:26)
[2017-03-24 23:10] VITALS: BP 132/70; PULSE 76; TEMP 37.2; O2SAT 95
[2017-03-25] MEDS: CHECK SCOPOLAMINE PATCH PLACEMENT SCH (00:12)
[2017-03-25] MEDS: KETOROLAC TROMETHAMINE 15 MG/ML VIAL IV. SCH ×2 (00:12→05:57)
[2017-03-25] MEDS: ACETAMINOPHEN 500 MG TAB PO SCH (05:57)
[2017-03-25 07:25] VITALS: BP 108/61; PULSE 78; TEMP 36.7; O2SAT 94
--- NOTE | 2017-03-25 07:52 | PROGRESS NOTE ---
DATE: 03/25/2017 SUBJECTIVE: A 72-year-old female postop day #2 from a right total hip replacement. She is doing well. Pain is under control. Denies any chest pain or shortness of breath. Not feeling dizzy or lightheaded. OBJECTIVE: VITAL SIGNS: Temperature 37.2. Vital signs stable. GENERAL: Physical examination reveals a healthy pleasant elderly female. She is lying in bed and looks quite comfortable. LUNGS: Clear to auscultation. HEART: Regular rate and rhythm. ABDOMEN: Soft, nontender, and nondistended. EXTREMITIES: Grossly neurovascularly intact except as follows: Examination of right hip and leg reveals the wound to be clean, dry and intact. Thigh is soft and supple. Hip is located. She is neurologically intact. ASSESSMENT: A 72-year-old female postop day 2 from right total hip replacement, doing well. Pain is controlled. PLAN: 1. DVT prophylaxis including thigh-high TEDs, SCDs, and aspirin twice a day. 2. PT/OT. Weightbearing as tolerated. Right total hip protocol. 3. Pain control, doing well with current pain regimen. 4. Disposition: Plan to discharge to home with some home health after therapy today.
[2017-03-25] MEDS: CHOLECALCIFEROL 1000 INTER.UNIT TAB PO SCH (08:22)
[2017-03-25] MEDS: CEROVITE ADV FORMULA TAB PO SCH (08:22)
[2017-03-25] MEDS: FERROUS GLUCONATE 324 MG TAB PO SCH (08:23)
[2017-03-25] MEDS: PANTOprazole SOD 40 MG TAB PO SCH (08:24)
[2017-03-25] MEDS: ZINC SULFATE 220 MG CAP PO SCH (08:25)
[2017-03-25] MEDS: DOCUSATE SODIUM 100 MG CAP PO SCH (08:26)
[2017-03-25] MEDS: MAGNESIUM OXIDE 400 MG TAB PO SCH (08:26)
[2017-03-25] MEDS: ASPIRIN 325 MG ECTAB PO SCH (08:26)
[2017-03-25] MEDS: MULTIVITAMIN TAB PO SCH (08:27)
[2017-03-25 09:13] VITALS: BP 108/61; PULSE 78; TEMP 36.7; O2SAT 94
--- NOTE | 2017-03-29 11:24 | DISCHARGE SUMMARY ---
ADMITTING PHYSICIAN AND SURGEON: Dr. Tovar. ADMITTING DIAGNOSIS: Right hip degenerative joint disease. SURGERY PERFORMED: Right total hip arthroplasty. SECONDARY DIAGNOSES: Elevated cholesterol, hypothyroidism, spinal arthritis, colon cancer. CONSULTS: None obtained. HISTORY AND PHYSICAL EXAMINATION: Well documented in the patient's chart. HOSPITAL COURSE: The patient was admitted on 03/23/2017 underwent total hip arthroplasty, tolerated the procedure well. There were no complications. She was transferred to the PACU postoperatively and later to the orthopedic floor for further care. She was given Ancef for antibiotic prophylaxis, KARAN stockings, SCDs and aspirin for DVT prophylaxis. Hemoglobin, hematocrit and vital signs were monitored during her hospital stay and remained stable. She developed some postoperative anemia with a hemoglobin of 10.6; did not require any blood transfusions. There were no complications. By postoperative day 2, she was tolerating a general diet, pain was controlled with oral pain medicine. She was participating in physical therapy and had no signs or symptoms of deep vein thrombosis. On postop day 2, she was discharged home in good condition, set up with home health services. She was given printed discharge instructions including prescriptions for extra strength Tylenol, aspirin 325 mg b.i.d., iron supplement and tramadol. Continue her home medications with the exception of her home dose of aspirin which was changed. Continue physical therapy, weightbearing as tolerated. KARAN stockings. Follow up in 10-12 days or sooner if any problems or concerns.
== END 2017-03-25 09:48 | disposition home health service (06) | DRG 470 ==
LOC: ENRESERVTM → ENRESERVDT → C.ACU 05:35 → C.3E 06:45
PROVIDERS: ADMIT Orthopaedic Surgery Sports Medicine; ATTEND Orthopaedic Surgery Sports Medicine
PROC: 0SR902A Replacement of Right Hip Joint with Metal on Polyethylene Synthetic Substitute, Uncemented, Open Approach (ICD-10-PCS; principal; 2017-03-23 07:30)
DX: M16.11 Unilateral primary osteoarthritis, right hip (principal); E78.00 Pure hypercholesterolemia, unspecified; E03.9 Hypothyroidism, unspecified; Z85.038 Personal history of other malignant neoplasm of large intestine

== ENCOUNTER → 2017-05-11 | Outpatient (CLI) | payer OTHER, BC ==
[~2017-05-11] MED LIST changes: +ACET-1138 PO; -ASPCH81X PO; +ASPEC325 PO; +FRRG PO; +MAGN400T6 PO; +ULT50X PO; +ZINC1CAP PO; +[UNRECOGNIZED DRUG - OTHER]
--- NOTE | 2017-05-11 10:36 | DIAGNOSTIC IMAGING REPORT ---
(CHEST) THORAX WITHOUT CLINICAL HISTORY: Pulmonary nodules COMPARISON STUDY: 03/01/2017 CT DOSE: 228.68 mGycm TECHNIQUE: CT of the thorax was performed from the thoracic inlet to the lung bases. Images are reviewed in the axial, sagittal, and coronal planes. IV contrast was not administered for this examination. FINDINGS: Thyroid: Imaged portions of the thyroid gland are normal in appearance. Thoracic aorta: The thoracic aorta is normal in course and caliber, noting standard 3 vessel arch anatomy. Heart: The heart is normal in size and configuration, without pericardial effusion. Lungs and pleural spaces: There are no pleural effusions. There is no focal pulmonary consolidation. There is a 13 x 5 mm right apical pulmonary nodule, similar in size to the preceding study. There is been near complete interval resolution of the 4 cm right middle lobe pleural-based opacity. There are few scattered granulomatous calcifications present. There is been resolution of the right lower lobe tree-in-bud opacities Mediastinum: There is no mediastinal lymphadenopathy. There are no pathologically enlarged mediastinal lymph nodes Maeve: There is no evidence of pathologic hilar adenopathy given the limitations of a noncontrast study Axilla: Clear. Upper abdomen: There is a moderate hiatal hernia Skeletal structures: There are T12-L1 endplate erosive changes IMPRESSION: 1. Partial clearing of the 4 cm pleural-based airspace opacity within the right middle lobe. 2. Interval resolution of the right lower lobe tree-in-bud opacities 3. Interval decrease in the size of the mediastinal lymph nodes 4. Stable 13 x 5 mm right apical pulmonary nodule. 6 month follow-up is recommended. Electronically signed by: Jacob Tariq M.D. 05/11/2017 10:34 AM Dictated Date/Time: 05/11/2017 10:27 AM
== END | disposition home or self-care (01) ==
LOC: C.CTS 09:56
PROVIDERS: ATTEND Family Medicine
DX: R91.8 Other nonspecific abnormal finding of lung field (principal); R91.1 Solitary pulmonary nodule

== ENCOUNTER → 2017-06-14 | Outpatient (CLI) | payer OTHER, BC ==
--- NOTE | 2017-06-14 17:04 | DIAGNOSTIC IMAGING REPORT ---
LEFT KNEE MRI HISTORY: PAIN IN LEFT KNEE COMPARISON STUDY: Left knee 07/19/2015. TECHNIQUE: Multiplanar multisequence MRI of the left knee was performed according to standard department protocol without the use of contrast. FINDINGS: Menisci: Truncated appearance to the body of the lateral meniscus which demonstrates increased T2 signal. This is consistent with a free edge tear. There is also thinning and increased T2 signal within the posterior root of the lateral meniscus suggestive of a tear. There is a complex tear involving the body and posterior horn of the medial meniscus. The medial meniscus is extruded from the joint space. There is a 4 mm intra-articular loose body at the inferior meniscal gutter medially. This could represent a fragment of the torn meniscus. Ligaments: Small amount of increased signal in thickening within the ACL consistent with mucoid degeneration. The PCL, and LCL are intact. There is a multiloculated fluid collection within the MCL fibers which favors a bursitis. However, this could represent a large parameniscal cyst or a ganglion cyst.. This measures 4.0 x 1.2 cm. No evidence for acute MCL tear. Extensor mechanism: The quadriceps tendon and patellar ligament are intact. Articular cartilage and bone: No acute fracture or dislocation. There is subchondral edema within the medial compartment of the knee with large marginal osteophytes. There is [id number] articulation with full-thickness cartilage loss measuring 3.2 x 1.8 cm within the central weightbearing portion of the medial femoral condyle and medial tibial plateau. There is approximately 50% cartilage thinning within the anterior aspect of the medial femoral condyle medial tibial plateau. There is less than 50% cartilage thinning within the lateral compartment of the knee with associated marginal osteophytes. There is also focal cartilage fissuring within the median ridge of the patella. Joint effusion: Small joint effusion. Soft tissues: Multiloculated cystic structure posterior to the medial tibial plateau. This favors a ganglion cyst. This is partially extend into the posterior lip of the medial tibial plateau. This measures 2.4 x 2.1 cm. There is a second ganglion cyst posterior to the distal femur measuring 1.9 cm. IMPRESSION: 1. Complex tear within the medial meniscus as described above with a free edge tear involving the body of the lateral meniscus. There is also suggestion of a tear involving the posterior root of the lateral meniscus. 2. There is a multiloculated fluid collection within the MCL fibers which favors a bursitis. However, this could represent a large parameniscal cyst or a ganglion cyst.. This measures 4.0 x 1.2 cm. 3. Small joint effusion. 4. Ganglion cyst posterior to the femur and tibia as described above. 5. Tricompartmental osteoarthritis most pronounced at the medial compartment with there is full-thickness cartilage loss and [id number] articulation. Electronically signed by: Aniceto Montaño M.D. 06/14/2017 5:02 PM Dictated Date/Time: 06/14/2017 4:51 PM
== END | disposition home or self-care (01) ==
LOC: C.MRI 15:40
PROVIDERS: ATTEND Family Medicine
DX: M25.562 Pain in left knee (principal); G89.29 Other chronic pain

== ENCOUNTER → 2017-11-01 | Outpatient (CLI) | payer OTHER, BC ==
[~2017-11-01] MED LIST changes: +HYDR-5688 PO; +NUTRCAP54 PO; +OMEG10007 PO; +ONDA4TAB65 PO; +POTA99TA PO; -SYN100; +SYN100 PO; +TRAM-453 PO; +TURM500T PO; +ZINC66TA PO
--- NOTE | 2017-11-01 11:26 | DIAGNOSTIC IMAGING REPORT ---
(CHEST) THORAX WITHOUT CT DOSE: 219.14 mGy.cm HISTORY: Lung nodule PULMONARY NODULE TECHNIQUE: Multiaxial CT images of the chest were performed without contrast. A dose lowering technique was utilized adhering to the principles of ALARA. COMPARISON: 05/11/2017 FINDINGS: Generally stable exam compared to the prior study. Spiculated density right pulmonary and to lesser extent left pulmonary apex are identical. Calcified granuloma right midlung is unchanged. Chronic fibrotic scarring combined with a calcified granuloma anterior right middle lobe is stable. Lung bases currently are clear. There are no focal infiltrative changes. There is a small posterior right hernia unchanged from the prior exam. There is a fixed hiatal hernia. No significant mediastinal or hilar adenopathy within limitations of unenhanced scan. Atherosclerotic change thoracic aorta unchanged.. IMPRESSION: 1. Stable evaluation of the chest with unchanging chronic fibrotic change right middle lobe and unchanging right apical nodule. 2. A repeat study in one year is felt to be acceptable as follow-up. The above report was generated using voice recognition software. It may contain grammatical, syntax or spelling errors. Electronically signed by: Casey Rollins M.D. 11/01/2017 11:24 AM Dictated Date/Time: 11/01/2017 11:06 AM
== END | disposition home or self-care (01) ==
LOC: C.CTS 10:53
PROVIDERS: ATTEND Family Medicine
DX: R91.1 Solitary pulmonary nodule (principal)

== ENCOUNTER → 2017-12-15 | Outpatient (CLI) | payer OTHER, BC ==
[~2017-12-15] MED LIST changes: +GADAVIST IV PRN; -HYDR-5688 PO; -NUTRCAP54 PO; -OMEG10007 PO; -ONDA4TAB65 PO; -POTA99TA PO; +SYN100; -SYN100 PO; -TRAM-453 PO; -TURM500T PO; -ZINC66TA PO
--- NOTE | 2017-12-15 11:41 | DIAGNOSTIC IMAGING REPORT ---
L INJECTION SHOULDER PRE MRI CLINICAL HISTORY: 72 years-old Female presenting with LEFT SHOULDER JOINT PAIN. COMPARISON: 06/14/2017. PROCEDURE: The risks, benefits, and alternatives to the procedure were discussed with the patient. Written informed consent was obtained. The patient was placed supine on the fluoroscopy table, and a left shoulder injection was performed under fluoroscopic guidance. The area was prepped and draped in the usual sterile fashion. The skin and soft tissues anesthetized with local 1% lidocaine. The left shoulder joint was accessed utilizing a 22-gauge needle, and approximately 12 cc of a mixture of gadolinium contrast, Optiray 300, and saline was injected into the joint space under fluoroscopic guidance. There was normal distention of the capsule. The procedure was well tolerated without immediate complication. The patient was then transferred to MRI for MR arthrography. Fluoroscopy dosage (mGy): Not available. Fluoroscopy time: 16 seconds. Number of fluoroscopic spot images: 0. IMPRESSION: Successful injection of the left shoulder under fluoroscopic guidance. Electronically signed by: Cipriano Lowe M.D. 12/15/2017 11:39 AM Dictated Date/Time: 12/15/2017 11:38 AM
--- NOTE | 2017-12-15 12:27 | DIAGNOSTIC IMAGING REPORT ---
L UPPER EXT JOINT WITH CLINICAL HISTORY: 72 years-old Female with LEFT SHOULDER JOINT PAIN. Chronic left shoulder pain with limited range of motion COMPARISON: CT chest 11/01/2017.. TECHNIQUE: Multiplanar, multi sequence MRI of the left shoulder was performed following injury or articular administration of solution containing Gadavist FINDINGS: ROTATOR CUFF: Severe tendinosis of the supraspinatus tendon with high-grade partial-thickness articular sided tear of the anterior insertional fibers measuring 9 x 9 mm in transverse and AP dimension. No definite full-thickness tear or retraction identified. Moderate tendinosis of the subscapularis tendon without high-grade partial or full-thickness tear identified. Teres minor tendon appears intact. Moderate tendinosis of the subscapularis tendon without discrete tear. No significant muscular atrophy or rotator cuff muscular edema. BICEPS TENDON: There is thickening with intermediate T2 signal noted involving the intra-articular portion of the long head biceps tendon compatible with tendinosis which extends into the intertubercular groove without discrete tear identified. LABRUM: The labrum is diffusely irregular and macerated compatible with areas of multifocal chronic tearing. GLENOHUMERAL JOINT: There is severe joint space narrowing with marginal spurring, chondral thinning and subcortical cystic changes noted involving the glenohumeral joint. There is a large surface osteophyte involving the inferior portion of the humeral head medially extending caudally into the axillary recess measuring up to 3.3 x 1.1 x 2.4 cm nicely seen on image 15 series 4 and image 13 series 5. Subcortical cystic changes are most prominent along the inferior portion of the glenoid likely from chronic friction from this large osteophyte. Joint effusion with moderate to extensive synovitis. No definite loose bodies identified. ACROMIOCLAVICULAR JOINT: Moderate to severe degenerative changes of the AC joint with capsular hypertrophy, marginal spurring, small joint effusion with capsular edema. Moderate subacromial/subdeltoid bursitis. Type II acromion. OUTLET SPACES: The suprascapular notch and quadrilateral space are without obstructing or space occupying lesions. BONE MARROW: Degenerative changes as above. No acute fracture or suspicious lesions. Subcortical cystic changes also seen involving the greater tuberosity. SOFT TISSUES: The periarticular soft tissues are unremarkable. IMPRESSION: 1. Severe osteoarthritis of the glenohumeral joint with large surface osteophyte of the inferior medial humeral head measuring up to 3.3 cm in length. There is associated joint effusion with moderate to extensive synovitis. 2. 9 mm high-grade partial-thickness articular sided tearing of the anterior insertional supraspinous tendon with severe tendinosis. No definite full-thickness tear or muscular atrophy identified. 3. Moderate tendinosis of the infraspinatus and subscapularis tendons. 4. Moderate to severe degenerative changes of the AC joint. 5. Mild tendinosis of the long head biceps tendon without definite tear identified. The above report was generated using voice recognition software. It may contain grammatical, syntax or spelling errors. Electronically signed by: Rene Perez M.D. 12/15/2017 12:25 PM Dictated Date/Time: 12/15/2017 11:36 AM
== END | disposition home or self-care (01) ==
LOC: C.MRIBC 09:34
PROVIDERS: ATTEND Family Medicine
DX: M25.512 Pain in left shoulder (principal)

== ENCOUNTER → 2018-01-08 | Outpatient (CLI) | payer OTHER, BC ==
[~2018-01-08] MED LIST changes: -GADAVIST IV PRN
== END | disposition home or self-care (01) ==
LOC: C.RDSM 13:55
PROVIDERS: ATTEND Physical Medicine & Rehabilitation Sports Medicine
DX: M75.42 Impingement syndrome of left shoulder (principal)

== ENCOUNTER → 2018-02-13 | Outpatient (CLI) | payer OTHER, BC ==
--- NOTE | 2018-02-13 09:24 | DIAGNOSTIC IMAGING REPORT ---
R SHOULDER MIN 2 VIEWS CLINICAL HISTORY: RIGHT SHOULDER PAIN/OSTEOARTHRITIS pain COMPARISON: None. DISCUSSION: Moderate rather significant degenerative change of the glenohumeral joint. Moderate peripheral synovial calcification. Mild degenerative change acromioclavicular joint. No evidence for fracture or dislocation. There is no evidence for soft tissue swelling. IMPRESSION: Moderate degenerative change including a component of calcific right shoulder synovitis. No evidence for fracture or dislocation. The above report was generated using voice recognition software. It may contain grammatical, syntax or spelling errors. Electronically signed by: Casey Rollins M.D. 02/13/2018 9:23 AM Dictated Date/Time: 02/13/2018 9:21 AM
== END | disposition home or self-care (01) ==
LOC: C.RDSM 09:09
PROVIDERS: ATTEND Physician Assistant
DX: M25.511 Pain in right shoulder (principal)

== ENCOUNTER → 2018-06-18 | Outpatient (CLI) | payer OTHER, BC ==
[~2018-06-18] MED LIST changes: -ACET-1138 PO; -ASPEC325 PO; -COLL1CAP PO; -DICL50TA3 PO; -FRRG PO; -GLUC15002 PO; +HYDR-5688 PO; +NUTRCAP54 PO; +ONDA4TAB65 PO; +POTA99TA PO; -SYN100; +SYN100 PO; +TURM500T PO; -ZINC1CAP PO; +ZINC66TA PO; -[UNRECOGNIZED DRUG - OTHER]
== END | disposition home or self-care (01) ==
LOC: C.RDSM 14:00
PROVIDERS: ATTEND Physical Medicine & Rehabilitation Sports Medicine
DX: M75.42 Impingement syndrome of left shoulder (principal)

== ENCOUNTER 2024-06-12 05:05 | Observation (INO) ==
--- NOTE | 2024-06-03 08:45 | Anesthesiology Consultation ---
Date of Service June 03, 2024 Assessment & Plan (1) Encounter for pre-operative examination: - medical clearance 05/29/24 [facility]: "...yes patient is medically cleared for surgery...tkr-left knee...low medical risk..." - Outpatient joint assessment: Patient is currently scheduled for inpatient pathway. If re-evaluated and patient/surgeon requests outpatient pathway, patient is not ideal candidate for outpatient joint program from anesthesia standpoint for TKA. - Per plugger worker on 06/03/24: No known infectious disease contacts, current infectious disease symptoms in past 10 days or COVID positive test result in the past 30 days. Chart Review Chart Review: Acceptable Risk for Surgery and Patient NOT seen in Pre Admission Testing History Surgery Operation Date: 06/12/24 07:00 Proposed Procedures p Left Total Knee Arthroplasty - Axel Bello MD Height/Weight Height: 5 ft 4 in Weight: 68.039 kg Allergies Allergy/AdvReac Type Severity Reaction Status Date / Time oxycodone AdvReac Mild NAUSEA Verified 06/03/24 08:19 cephalexin AdvReac extreme Verified 06/03/24 08:19 diarrhea Medications Home Medications Medication Instructions Recorded Confirmed Last Taken ascorbic acid (vitamin C) 1,000 mg 1,000 mg PO QPM 10/27/18 06/03/24 02/21/23 19:00 tablet,extended release cholecalciferol (vitamin D3) 25 1,000 unit PO QPM 10/27/18 06/03/24 02/21/23 19:00 mcg (1,000 unit) tablet magnesium oxide 400 mg (241.3 mg 400 mg PO Q2D 10/27/18 06/03/24 02/20/23 magnesium) tablet simvastatin 20 mg tablet 20 mg PO HS 10/27/18 06/03/24 02/21/23 19:00 dejah (Zingiber officinalis) 550 550 mg PO QAM 01/11/19 06/03/24 02/10/23 mg capsule methylsulfonylmethane 1,000 mg 1,000 mg PO QAM 01/11/19 06/03/24 02/10/23 tablet (MSM) niacin 500 mg tablet 500 mg PO Q2D 01/11/19 06/03/24 02/20/23 turmeric root extract 500 mg 500 mg PO QAM 01/11/19 06/03/24 02/10/23 capsule acetaminophen 500 mg capsule 500 mg PO Q6H PRN Pain 10/28/20 06/03/24 02/22/23 03:30 cyanocobalamin (vitamin B-12) 1,000 mcg PO Q2D 10/28/20 06/03/24 02/20/23 1,000 mcg tablet potassium gluconate 595 mg (99 mg) 595 mg PO Q2D 10/28/20 06/03/24 02/20/23 tablet tramadol 50 mg tablet 50 mg PO BID PRN Pain 10/28/20 06/03/24 3 Months Ago ~11/24/22 zinc 50 mg tablet 50 mg PO QPM 10/28/20 06/03/24 02/21/23 19:00 melatonin 10 mg tablet 5 - 10 mg PO HS PRN Sleep 06/24/22 06/03/24 02/21/23 19:00 ferrous sulfate 325 mg (65 mg 325 mg PO QPM 01/23/23 06/03/24 02/21/23 19:00 iron) capsule,extended release levothyroxine 75 mcg tablet 75 mcg PO QAM 01/23/23 06/03/24 02/22/23 03:30 omega 9-bhp-hnz-fish oil 900 1 cap PO QPM 01/23/23 06/03/24 02/10/23 mg-1,400 mg capsule,delayed release (Fish Oil) hyalur ac-chond sul-colg II-AA 40 1 cap PO DAILY 02/22/23 06/03/24 02/20/23 mg-80 mg-400 mg capsule (Hyaluronic Acid(with chondroitin-collagenII)) hydrocodone 5 mg-acetaminophen 325 2 tab PO Q6H PRN pain #18 tabs 02/22/23 06/03/24 Unknown mg tablet Vital Proteins Collagen 4 gummy PO QAM 06/03/24 06/03/24 Unknown glucosamine sulfate dipotassium Cl 1 cap PO DAILY 06/03/24 06/03/24 Unknown 500 mg-chondroitin 400 mg capsule (Glucosamine Sulfate 2 KCL-Chondroitin) krill oil 500 mg capsule 500 mg PO DAILY 06/03/24 06/03/24 Unknown Past Medical History Medical History CKD (chronic kidney disease) stage 3, GFR 30-59 ml/min Degenerative disc disease Dyslipidemia GERD (gastroesophageal reflux disease) hx-rare History of colon cancer 2006, sx and chemo Hx of endometriosis Hypothyroidism Pulmonary nodule under obs for past several years Spinal stenosis Past Family History Family History Brother Family hx of colon cancer Family hx colonic polyps Sister Family history of esophageal cancer Family hx colonic polyps Other No family history of adverse response to anesthesia Past Surgical History Surgical History History of bowel resection 2006 History of cataract surgery rt/lt History of colonoscopy History of lumbar laminectomy (~04/11/[place] [facility] [place] of [place] extraction History of total right hip replacement Hx of eye surgery s/p retina repair right eye Hx of inguinal hernia repair RT. 01/21/19 MAC. Hx of laparoscopy S/p reverse total shoulder arthroplasty LEFT 05/09/1818 Grade 2 view, MAC 3, ETT 7.5 + PNB. right 2022 Status post epidural steroid injection (~11/09/20) Social History Smoking Status: Former smoker tobacco type: cigarettes Smoking cigarettes per day: STILL SMOKES ~10 CIGARETTES PER WEEK-advised Do You Dip or Chew Tobacco: No Smoking End Date: 2022-"minimal at the end" Hx Alcohol Use: Yes Alcohol type: hard liquor alcohol intake frequency: holidays/special occasions only Hx Substance Use: No substance use type: does not use Lab Results Anesthesia Preop Results Results Anesthesia Widget: WBC 6.14 K/ul (4.8-10.8) 05/23/24 Hgb 14.1 g/dl (12.0-16.0) 05/23/24 Hct 41.8 % (37.0-47.0) 05/23/24 Plt 158 K/uL (130-400) 05/23/24 Na 139 mmol/L (136-145) 05/23/24 K 4.1 mmol/L (3.5-5.1) 05/23/24 Cl 103 mmol/L (98-107) 05/23/24 CO2 29 mmol/L (21-32) 05/23/24 BUN 17 mg/dl (6-23) 05/23/24 Creat 0.93 mg/dl (0.6-1.2) 05/23/24 Glucose Level 86 mg/dl (70-99(Fasting)) 05/23/24 PT 10.4 Seconds (9.0-12.0) 05/23/24 PTT 25 Seconds (21-31) 05/23/24 INR 1.0 (0.9-1.1) 05/23/24 Urine Color Yellow 05/23/24 Urine Appearance Clear (Clear) 05/23/24 Urine pH 5.5 (4.5-7.5) 05/23/24 Urine Specific [place] 1.024 (1.000-1.030) 05/23/24 Urine Protein Negative (Negative) 05/23/24 Urine Glucose (UA) Negative (Negative) 05/23/24 Urine Ketones Trace (Negative) H 05/23/24 Urine Blood Negative (Negative) 05/23/24 Urine Nitrite Negative (Negative) 05/23/24 Urine Bilirubin Negative (Negative) 05/23/24 Urine Urobilinogen Negative (Negative) 05/23/24 Urine Leukocyte Esterase Trace (Negative) H 05/23/24 Urine WBC (Auto) 0-5 /hpf (0-5) 05/23/24 Urine RBC (Auto) 0-2 /hpf (0-2) 05/23/24 Urine Hyaline Casts (Auto) 0-2 /lpf (0-2) 05/23/24 Urine Epithelial Cells (Auto) 0-2 /hpf (0-2) 05/23/24 Urine Bacteria (Auto) None Seen (None Seen) 05/23/24 Blood Type O Positive 05/23/24 Antibody Screen NEGATIVE 05/23/24 Testing Electrocardiogram Date: 05/23/24 Sinus bradycardia, rate 59 bpm Minimal voltage criteria for LVH, may be normal variant Chest X-Ray Date: 05/23/24 *1view* No significant change compared to the prior study. No acute process.
--- NOTE | 2024-06-12 05:19 | History & Physical Bridge Note ---
Date of Service June 12, 2024 History & Physical Bridge Note I have examined the patient, reviewed the History & Physical and in the interval since the performance of the History & Physical I have noted the following changes of clinical significance:wants to consider same day discharge. no changes noted
[2024-06-12] MEDS: LR 500ML BOLUS, THEN 15ML/HR IV SCH (05:40)
[2024-06-12] MEDS: LR 60ML/HR IV SCH (05:40)
[2024-06-12] MEDS: VANCOMYCIN HCL 1,000 MG/270 ML BAG IV SCH (05:41)
--- OUTSIDE RECORDS SUMMARY | 2024-06-12 05:58 | External Medical Summary | Summary of Care ---
Author Name Unknown Organization [facility] Address [address] [facility] [place] [address] Phone [phone] Care Team Providers Care Extrusion Process Operator Name Role Phone Westley Pedraza MD Primary Care Provider [phone]- [phone] Encounter Details Date Type Department Care Team (Late st Contact Info) Description 05/30/2024 Orders Only [facility] [address] [place] [address] Estephania Corrigan PA-C [address] [place] [address] Allergies Active Allergy Reactions Criticality Noted Date Comments Cephalexin Diarrhea Low 06/13/2023 Oxycodone Low 01/23/2023 Other Reaction(s): NAUSEA documented as of this encounter (statuses as of 05/30/2024) Medications Medication Sig Dispensed Refills Start Date End Date Status ASPIRIN 81 MG PO TABS One tablet daily Active MULTIVITAMIN/IRON PO TABS One tablet daily Active Glucosamine-Chondroiti n 8142-0332 MG/30ML LIQD Take by mouth. 03/09/2017 Active TUMERIC CAPS Active traMADol HCl 50 MG Oral Tablet (Ultram)Indications:Pr imary osteoarthritis of left knee,Primary osteoarthritis of right hip Take by mouth 1 Tablet every 6 hours as needed (pain). 30 Tablet 12/20/2021 Active Melatonin 10 MG Oral Tablet Take 1 Tablet by mouth at bedtime as needed. 06/24/2022 Active Amoxicillin 500 MG Oral Capsule (Amoxil)Indications:St atus post replacement of left shoulder joint 4 caps by mouth prior to dental procedure 4 Capsule 2 01/31/2023 Active Levothyroxine Sodium 75 MCG Oral Tablet (Levoxyl) Take 1 Tablet by mouth in the morning. (at least 30 min prior to breakfast or other meds). 90 Tablet 3 09/14/2023 Active Simvastatin 20 MG Oral Tablet (Zocor) TAKE 1 TABLET BY MOUTH ONCE DAILY AT BEDTIME 90 Tablet 3 09/14/2023 Active Benzonatate 100 MG Oral Capsule Take 1 Capsule by mouth 3 times a day as needed for Cough. 30 Capsule 1 02/28/2024 Active Ondansetron 4 MG Oral Tablet Disintegrating (Zofran)Indications:Na usea,Adverse effect of agent primarily affecting gastrointestinal system, initial encounter Place 1 Tablet on tongue every 8 hours as needed for Nausea. dissolve on tongue. 20 Tablet 1 05/29/2024 Active documented as of this encounter (statuses as of 05/30/2024) Active Problems Problem Noted Date Diagnosed Date History of colon cancer 10/28/2020 Stage 3a chronic kidney disease 09/07/2020 Overview: Per CKD protocol - Per CKD protocol Pulmonary nodule 04/05/2017 Primary osteoarthritis of left knee 04/05/2017 Primary osteoarthritis of right hip 04/05/2017 H/o Lyme disease 04/05/2017 Hypothyroidism 04/05/2017 Dyslipidemia 04/05/2017 documented as of this encounter (statuses as of 05/30/2024) Resolved Problems Problem Noted Date Diagnosed Date Resolved Date Kidney disease, chronic, sta ge III (GFR 30-59 ml/min) 07/08/2019 09/10/2020 Overview: Per CKD protocol MEDICATION USE AGREEMENT 12/07/2017 Overview: Signed 12/07/17 Malignant neoplasm of colon 04/05/2017 05/02/2017 Retinal edema 11/04/2010 11/10/2021 documented as of this encounter (statuses as of 05/30/2024) Immunizations Name Administration Dates Next Due COVID-19 mRNA, LNP-s, No Pre serve, 2-Dose Series (Hitsbook) 07/30/2021,01/08/2021,12/18/2020 Pneumococcal Conjugate Vacc, 13 Valent (Prevnar) 07/30/2018 Pneumococcal Polysaccharide PPV23 (Pneumovax) 10/31/2019,03/24/2017 Season Influenza, Quad, PF, Adjuvanted, 65+ Yrs, IM (FLUAD) 08/09/2021,07/15/2020 Seasonal Influenza, PF, 6 M & above, IM , (FluLaval or Fluzone) 07/05/2019,08/01/2017 Seasonal Influenza, Quadriva lent Hd (Fluzone Hd) 08/20/2023,08/20/2022 Seasonal Influenza, Quadriva lent, No Preserve, Peds 08/02/2018 TDAP (age 10 and older)(Boostrix) 06/25/2015 Varicella Zoster Vaccine (Adult) 04/04/2011 Zoster Vaccine Recombinant (Shingrix) 06/29/2020 ,10/31/2019 documented as of this encounter Social History Tobacco Use Types Packs/Day Years Used Date Smoking Tobacco: Former Cigarettes 0.3 40 0 01/29/1976 - 01/29/2016 Smokeless Tobacco: Never Alcohol Use Standard Drinks/Week Comments Yes 2.5 (1 standard drink = 0.6 oz p ure alcohol) PHQ-2 Answer Date Recorded PHQ Adult Total Score 0 05/11/2022 Hunger Vital Sign Answer Date Recorded Within the past 12 months, y ou worried that your food would run out before you got the money to buy more. Never true 05/11/20 22 Within the past 12 months, t he food you bought just didn't last and you didn't have money to get more. Never true 05/11/2022 Sex and Gender Information Value Date Recorded Sex Assigned at Female 07/05/2019 12:49 PM EDT Gender Identity Female 07/05/2019 12:49 PM EDT Sexual Orientation Straight 07/05/2019 12 :49 PM EDT Job Start Date Occupation Industry Not on file Not on file Not on file documented as of this encounter Plan of Treatment Upcoming Encounters Date Type Department Care Team (Late st Contact Info) Description 05/30/2024 1:45 PM EDT Imaging Radiology [address], [address] [place] [address] 07/23/2024 4:00 PM EDT Office Visit [facility] [address] [place] [facility] [place] [address] Westley Pedraza MD [address] [place] [facility] [place] [address] Health Maintenance Due Date Last Done Comments Depression Screening 05/11/2023 05/11/2022 COVID-19 Vaccine ( season) 2023 07/30/2021, 01/08/2021, 12/18/2020 GFR 06/10/2024 05/23/2024, 11/30, 06/13/2023, Additional history exists Influenza Vaccine (FLU shot) (#1) 2024 08/20/2023, 08/20/2022, 08/09/2021, Additional history exists Albumin/Creatinine Ratio 12/11/2024 12/11/2023, 04/01 CKD HGB USE SMARTSET 95109 12/11/202405/23, 12/11/2023, 01/30/2023, Additional history exists CKD PHOS USE SMARTSET 18080 12/11/202411/30, 11/10/2021, 04/28/2020 TSH 12/11/2024 12/11/2023, 10/30, 05/11/2022, Additional history exists DTaP,Tdap,and Td Vaccines (2 - Td or Tdap) 06/25/2025 06/25/2015 DXA Scan 03/14/2026 03/14/2019, 11/28/2016 Colonoscopy 01/24/2027 01/24/2022, 12/29, 01/20/2017 Pneumococcal Vaccine: 65+ Years Completed 10/31/2019, 07/30/2018, 03/24/2017 Zoster Vaccines Completed 06/29/2020, 11/2019, 04/04/2011 RETIRED - COLONOSCOPY-EVERY 5 YRS AGES 18-100 Discontinued 01/24/2022, 01/24/2022, 01/20/2017, Additional history exists HPV (Gardasil) Vaccine Aged Out No lo nger eligible based on patient's age to complete this topic Hepatitis B Vaccine Aged Out No longe r eligible based on patient's age to complete this topic MENINGOCOCCAL (MENACTRA/MENVEO) Aged Out No longer eligible based on patient's age to complete this topic documented as of this encounter Medical Devices Not on filedocumented as of this encounter Procedures Procedure Name Priority Date/Time Associated Diagnosis Comments CHEMISTRY-OUTSIDE Routine 05/23/2024 documented in this encounter Results * CHEMISTRY-OUTSIDE (05/23/2024) Not all results display below - see scan for full detail OUTSIDE LAB (SEE SCANNED REPORT) Comment:SCAN INCLUDES - CBCD , UA, PT, INR, PTT, BMP CREATININE-OUTSI DE LAB 0.93 0.6 - 1.2 MG/DL OUTSIDE LAB (SEE SCANNED REPORT) EGFR-OUTSIDE LAB 58.0 ML/MIN/1.73M 2 OUTSIDE LAB (SEE SCANNED REPORT) POTASSIUM-OUTSID E LAB 4.1 3.5 - 5.1 MMOL/L OUTSIDE LAB (SEE SCANNED REPORT) GLUCOSE-OUTSIDE LAB 86 70 - 99 MG/DL OUTSIDE LAB (SEE SCANNED REPORT) HOURS FASTING OUTSID E LAB (SEE SCANNED REPORT) TRIGLYCERIDES-OU TSIDE LAB OUTSIDE LAB (SEE SCANNED REPORT) CHOLESTEROL-OUTS ARLETH LAB OUTSIDE LAB (SEE SCANNED REPORT) HDL-OUTSIDE LAB OUTS ARLETH LAB (SEE SCANNED REPORT) CHOL/HDL RATIO-OUTSIDE LAB OUTSIDE LAB (SEE SCANNED REPORT) LDL (CALCULATED)-OUT SIDE LAB OUTSIDE LAB (SEE SCANNED REPORT) LDL (DIRECT MEASURE)-OUTSIDE LAB OUTSIDE LAB (SEE SCANNED REPORT) HEMOGLOBIN, [id number] LAB OUTSIDE LAB (SEE SCANNED REPORT) PHOSPHORUS-OUTSI DE LAB OUTSIDE LAB (SEE SCANNED REPORT) PTH-OUTSIDE LAB OUTS ARLETH LAB (SEE SCANNED REPORT) MICROALBUMIN RATIO-OUTSIDE LAB OUTSIDE LAB (SEE SCANNED REPORT) PROTEIN, UA-OUTSIDE LAB NEGATIVE NEGATIVE OUTSIDE LAB (SEE SCANNED REPORT) HGB 14.1 12.0 - 16.0 G/DL OUTSIDE LAB (SEE SCANNED REPORT) 05/23/2024 History Per Patient LABORATORY OUTSIDE LAB (SEE SCANNED REPORT) documented in this encounter Care Teams Extrusion Process Operator Relationship Specialty Start Date End Date Westley Pedraza MD [address] [place] [address] PCP - General Family Medicine 12/13/18 documented as of this encounter
--- OUTSIDE RECORDS SUMMARY | 2024-06-12 05:58 | External Medical Summary | Summary of Care ---
Author Name Unknown Organization [facility] Address [address] [facility] [place] [address] Phone [phone] Care Team Providers Care Yarn Sizer Name Role Phone Westley Pedraza MD Primary Care Provider +1- [phone] Encounter Details Date Type Department Care Team (Late st Contact Info) Description 05/23/2024 Result Scan Unspecified Department <No scans attached> Allergies Active Allergy Reactions Criticality Noted Date Comments Cephalexin Diarrhea Low 06/13/2023 Oxycodone Low 01/23/2023 Other Reaction(s): NAUSEA documented as of this encounter (statuses as of 05/30/2024) Medications Medication Sig Dispensed Refills Start Date End Date Status ASPIRIN 81 MG PO TABS One tablet daily Active MULTIVITAMIN/IRON PO TABS One tablet daily Active Glucosamine-Chondroit in 7304-8370 MG/30ML LIQD Take by mouth. 03/09/2017 Active TUMERIC CAPS Active traMADol HCl 50 MG Oral Tablet (Ultram)Indications:P rimary osteoarthritis of left knee,Primary osteoarthritis of right hip Take by mouth 1 Tablet every 6 hours as needed (pain). 30 Tablet 12/20/2021 Active Melatonin 10 MG Oral Tablet Take 1 Tablet by mouth at bedtime as needed. 06/24/2022 Active Amoxicillin 500 MG Oral Capsule (Amoxil)Indications:S tatus post replacement of left shoulder joint 4 [...] for Cough. 30 Capsule 1 02/28/2024 Active documented as of this encounter (statuses [...] mRNA, LNP-s, No Pre serve, 2-Dose Series (Pfizer) 07/30/2021,01/08/2021,12/18/2020 Pneumococcal Conjugate Vacc, 13 Valent (Prevnar) [...] Description 05/30/2024 1:45 PM EDT Imaging Radiology [facility], [address] [place] [address] 07/23/2024 4:00 PM EDT [facility] [address] [facility] [id number] Westley [facility]raza [facility] [address] [facility] [id number] Health Maintenance Due Date Last Done Comments Depression Screening 05/11/2023 05/11/2022 COVID-19 Vaccine ( season) 2023 07/30/2021, 01/08/2021, 12/18/2020 GFR 06/10/2024 05/23/2024, 11/30, 06/13/2023, Additional history exists Influenza Vaccine (FLU shot) (#1) 2024 08/20/2023, 08/20/2022, 08/09/2021, Additional history exists Albumin/Creatinine Ratio 12/11/2024 12/11/2023, 04/01 CKD HGB USE SMARTSET 91247 12/11/202405/23, 12/11/2023, 01/30/2023, Additional history exists CKD PHOS USE SMARTSET 46720 12/11/202411/30, 11/10/2021, 04/28/2020 TSH 12/11/2024 12/11/2023, 10/30, [...] Procedure Name Priority Date/Time Associated Diagnosis Comments OUTSIDE LAB RESULTS 05/23/2024 EKG SCANNED RESULT 05/23/2024 documented in this encounter Results * OUTSIDE LAB RESULTS (05/23/2024) 05/23/2024 No Physician Data Unknown LABORATORY * EKG SCANNED RESULT (05/23/2024) 05/23/2024 No Physician Data Unknown EKG documented in this encounter Care Teams Yarn Sizer Relationship Specialty Start Date End Date Westley Pedraza MD [address] [place] [address] PCP - General Family Medicine 12/13/18 documented as of this encounter
--- OUTSIDE RECORDS SUMMARY | 2024-06-12 05:58 | External Medical Summary | Summary of Care ---
Author Name Unknown Organization [facility] Address [address] [facility] [place] [address] Phone [phone] Care Team Providers Care Straightener Gun Parts Name Role Phone Westley Pedraza MD Primary Care Provider +1- [phone] Encounter Details Date Type Department Care Team (Late st Contact Info) Description 05/30/2024 Orders Only [facility] [address] [place] [address] Estephania Corrigan PA-C [address] [place] [address] Allergies Active Allergy Reactions Criticality Noted Date Comments Cephalexin Diarrhea Low 06/13/2023 Oxycodone Low 01/23/2023 Other Reaction(s): NAUSEA documented as of this encounter (statuses as of 05/30/2024) Medications Medication Sig Dispensed Refills Start Date End Date Status ASPIRIN 81 MG PO TABS One tablet daily Active MULTIVITAMIN/IRON PO TABS One tablet daily Active Glucosamine-Chondroiti n 9292-2378 MG/30ML LIQD Take by mouth. 03/09/2017 Active [...] mRNA, LNP-s, No Pre serve, 2-Dose Series ([employer]) 07/30/2021,01/08/2021,12/18/2020 Pneumococcal Conjugate Vacc, 13 Valent (Prevnar) [...] Description 05/30/2024 1:45 PM EDT Imaging Radiology [address], [address] [place] [address] 07/23/2024 4:00 PM EDT Office [facility] [address] [facility] [address] Westley Pedraza MD [address] [place] [facility] [place] [address] Health Maintenance Due Date Last Done Comments Depression Screening 05/11/2023 05/11/2022 COVID-19 Vaccine (2022- season) 2023 07/30/2021, 01/08/2021, 12/18/2020 GFR 06/10/2024 12/11/2023, 05/30, 01/30/2023, Additional history exists Influenza Vaccine (FLU shot) (#1) 2024 08/20/2023, 08/20/2022, 08/09/2021, Additional history exists Albumin/Creatinine Ratio 12/11/2024 12/11/2023, 04/01 CKD HGB USE SMARTSET 66281 12/11/202412/11, 01/30/2023, 05/11/2022, Additional history exists CKD PHOS USE SMARTSET 98722 12/11/202411/30, 11/10/2021, 04/28/2020 TSH 12/11/2024 12/11/2023, 10/30, [...] Procedure Name Priority Date/Time Associated Diagnosis Comments XR CHEST 1 VIEW Routine 05/23/2024 documented in this encounter Results * XR CHEST 1 VIEW (05/23/2024) Anatomical Region Laterality Modality Chest Other 05/23/2024 Jaquan Araya PA-C RADIOLOGY (RAD GENERAL) documented in this encounter Care Teams Stra[employer] Relationship Specialty Start Date End Date Westley Pedraza MD [address] [place] [address] PCP - General Family Medicine 12/13/18 documented as of this encounter
--- OUTSIDE RECORDS SUMMARY | 2024-06-12 05:58 | External Medical Summary | Summary of Care ---
Author Name Unknown Organization [facility] Address [address] [facility] [place] [place] [address] Phone [phone] Care Team Providers Care Culinary Internship Name Role Phone Westley Pedraza MD Primary Care Provider [phone] Reason for Visit * Reason Comments pre-op exam Pt states that she i s here for a pre op for a Knee Replacement on June [address] Bello Encounter Details Date Type Department Care Team (Latest Contact Info) Description 05/29/2024 8:40 AM EDT Office Visit [facility] [address] [place] [address] Estephania Corrigan PAKatarzynaC [address] [place] [address] Pre-operative cardiovascular examination*; Nausea; Adverse effect of agent primarily affecting gastrointestinal system, initial encounter; Primary osteoarthritis of left knee; Stage 3a chronic kidney disease; Other specified hypothyroidism Allergies Active Allergy Reactions Criticality Noted Date Comments Cephalexin Diarrhea Low 06/13/2023 Oxycodone Low 01/23/2023 Other Reaction(s): NAUSEA documented as of this encounter (statuses as of 05/29/2024) Medications Medication Sig Dispensed Refills Start Date End Date Status ASPIRIN 81 MG PO TABS One tablet daily Active MULTIVITAMIN/IRON PO TABS One tablet daily Active Glucosamine-Chondroit in 0796-2679 MG/30ML LIQD Take by mouth. 7 Active TUMERIC CAPS Active traMADol HCl 50 MG Oral Tablet (Ultram)Indications:P rimary osteoarthritis of left knee,Primary osteoarthritis of right hip Take by mouth 1 Tablet every 6 hours as needed (pain). 30 Tablet 2 Active Melatonin 10 MG Oral Tablet Take 1 Tablet by mouth at bedtime as needed. 2 Active Amoxicillin 500 MG Oral Capsule (Amoxil)Indications:S tatus post replacement of left shoulder joint 4 caps by mouth prior to dental procedure 4 Capsule 2 3 Active Levothyroxine Sodium 75 MCG Oral Tablet (Levoxyl) Take 1 Tablet by mouth in the morning. (at least 30 min prior to breakfast or other meds). 90 Tablet 3 3 Active Simvastatin 20 MG Oral Tablet (Zocor) TAKE 1 TABLET BY MOUTH ONCE DAILY AT BEDTIME 90 Tablet 3 3 Active Benzonatate 100 MG Oral Capsule Take 1 Capsule by mouth 3 times a day as needed for Cough. 30 Capsule 1 4 Active Ondansetron 4 MG Oral Tablet Disintegrating (Zofran)Indications:N ausea,Adverse effect of agent primarily affecting gastrointestinal system, initial encounter Place 1 Tablet on tongue every 8 hours as needed for Nausea. dissolve on tongue. 20 Tablet 1 4 Active Azithromycin 250 MG Oral Tablet (Zithromax Z-Jaspreet) Take two tablets by mouth on first day, then 1 tablet daily until gone 6 Tablet 4 05/29/20 24 Discontinued documented as of this encounter (statuses as of 05/29/2024) Active Problems Problem Noted Date Diagnosed Date History of colon cancer 10/28/2020 Stage 3a chronic kidney disease 09/07/2020 Overview: Per CKD protocol - Per CKD protocol Pulmonary nodule 04/05/2017 Primary osteoarthritis of left knee 04/05/2017 Primary osteoarthritis of right hip 04/05/2017 H/o Lyme disease 04/05/2017 Hypothyroidism 04/05/2017 Dyslipidemia 04/05/2017 documented as of this encounter (statuses as of 05/29/2024) Resolved Problems Problem Noted Date Diagnosed Date Resolved Date Kidney disease, chronic, sta ge III (GFR 30-59 ml/min) 07/08/2019 09/10/2020 Overview: Per CKD protocol MEDICATION USE AGREEMENT 12/07/2017 Overview: Signed 12/07/17 Malignant neoplasm of colon 04/05/2017 05/02/2017 Retinal edema 11/04/2010 11/10/2021 documented as of this encounter (statuses as of 05/29/2024) Immunizations Name Administration Dates Next Due COVID-19 [...] 0 01/29/1976 - 01/29/2016 Smokeless Tobacco: Never Tobacco Cessation:Counseling Given: Not Answered Alcohol Use Standard Drinks/Week Comments Yes 2.5 [...] on file documented as of this encounter Last Filed Vital Signs Vital Sign Reading Time Taken Comments Blood Pressure 132/80 05/29/2024 8:51 AM EDT Pulse 73 05/29/2024 8:51 AM EDT Temperature 36.3 C (97.4 F) 05/29/2024 8:51 AM ED T Respiratory Rate 16 05/29/2024 8:51 AM EDT Oxygen Saturation 96% 05/29/2024 8:51 AM EDT Inhaled Oxygen Concentration - - Weight 68.9 kg (152 lb) 05/29/2024 8:51 AM EDT Height 162.6 cm (5' 4") 05/29/2024 8:51 AM EDT Body Mass Index 26.09 05/29/2024 8:51 AM EDT documented in this encounter Progress Notes * Estephania Corrigan PA-C - 05/29/2024 8:57 AM EDT Images from the original note were not included. Pre-Operative Medical Evaluation Procedure Information Type of Surgery: tkr - left knee Referring Physician / Surgeon: Dr Bello Date of procedure: 06/12/2024 Brief History of Present Illness: Generally heatlhy female patient Review of Systems: Constitutional ROS: No change in weight, No weakness, No fatigue, and No fevers, sweats, or chills Eye ROS: No recent significant change in vision, No eye pain, redness, discharge, No diplopia, and No h/o glaucoma Ear ROS: No ear pain, No drainage, No tinnitus or vertigo, and No recent change in hearing Nose ROS: No history of frequent colds or sinusitis, No nasal stuffiness, No history of Hay Fever, and No significant epistaxis Mouth/Throat ROS: No bleeding gums, No thrush, or No sore throat Neck ROS: No lumps or masses, No swollen glands, No recent swelling in thyroid area, No significantpain in neck, and No h/o goiter or thyroid disease Pulmonary ROS: No cough, sputum, or hemoptysis, No wheezing, No rales, No shortness of breath, and No recent change in breathing Cardiovascular ROS: No chest pain, No shortness of breath, No dyspnea on exertion, No orthopnea, Noparoxysmal nocturnal dyspnea, No edema, No palpitations, and No syncope Gastrointestinal ROS: No abdominal pain, No change in bowel habits, No significant heartburn, No significant change in appetite, No nausea, vomiting, diarrhea, or constipation, No hematemesis, No blood in stools or black tarry stools, No abdominal bloating or early satiety, and No dysphagia Genito-Urinary Female ROS: No STDs, No dysuria, No frequency, No incontinence, No irregular menstruation, No urgency, and No vaginal discharge Musculoskeletal/Extremities ROS: joint pain consistent with arthritis Hematologic/Lymphatic ROS: No coagulation disorder, No anemia, No abnormal bleeding, No chills, No bruising, No HIV risk factors, No night sweats, No swollen nodes, No weight loss, and No history of transfusion Skin/Integumentary ROS: No edema, No itching, and chigger bites on legs Neurologic ROS: Normal balance, No headaches, No seizures, and No weakness Endocrine ROS: No heat intolerance, No cold intolerance, No thyroid trouble, and No excessive thirst or urination Psychiatric ROS: No depression, No anxiety, and No psychosis Allergy/Immunologic ROS: No allergic triggers, No sneeze, nasal itch, ocular symptoms of allergy, No reactions to insect sting, No chemical sensitivities, and No Food Allergies Sleep: No sleep disorders Medical History Problem List: History of colon cancer (10/28/2020) Stage 3a chronic kidney disease (09/07/2020) Kidney disease, chronic, stage III (GFR 30-59 ml/min) (HCC) (2018) MEDICATION USE AGREEMENT (12/07/2017) Malignant neoplasm of colon (HCC) (04/05/2017) Pulmonary nodule (04/05/2017) Primary osteoarthritis of left knee (04/05/2017) Primary osteoarthritis of right hip (04/05/2017) H/o Lyme disease (04/05/2017) Hypothyroidism (04/05/2017) Dyslipidemia (04/05/2017) Retinal edema (11/04/2010) Current Medications Ondansetron 4 MG Oral Tablet Disintegrating (Zofran), 4 mg, On Tongue, Q8H PRN Benzonatate 100 MG Oral Capsule, 100 mg, Oral, TID PRN Levothyroxine Sodium 75 MCG Oral Tablet (Levoxyl), 75 mcg, Oral, Daily(AM) Simvastatin 20 MG Oral Tablet (Zocor), TAKE 1 TABLET BY MOUTH ONCE DAILY AT BEDTIME Amoxicillin 500 MG Oral Capsule (Amoxil), 4 caps by mouth prior to dental procedure Melatonin 10 MG Oral Tablet, 10 mg, Oral, HS PRN traMADol HCl 50 MG Oral Tablet (Ultram), 50 mg, Oral, Q6H PRN TUMERIC CAPS, Glucosamine-Chondroitin 3674-3546 MG/30ML LIQD, Take by mouth. ASPIRIN 81 MG PO TABS, One tablet daily MULTIVITAMIN/IRON PO TABS, One tablet daily Allergies: Cephalexin and Oxycodone Past Medical History: has a past medical history of Colon cancer (), History of tobacco use, Hypothyroidism, Malignantneoplasm of colon (HCC) (2003), and Superficial injury of cornea (1989). Past Surgical History: has a past surgical history that includes information (2003); Laser Trabeculoplasty (11/04/2010); chemotherapy; breast biopsy (Right); breast biopsy (Right); pr arthroplasty glenohumeral joint total shoulder (Left, 05/23/2018); Lumbar Discectomy, Perc (Bilateral, 04/06/2021); and pr repair sliding inguinal hernia (Right, 01/21/2019). Social History: reports that she quit smoking about 8 years ago. Her smoking use included cigarettes. She started smoking about 48 years ago. She has a 12 pack-year smoking history. She has never used smokeless tobacco. She reports current alcohol use of about 2.5 standard drinks of alcohol per week. She reports that she does not use drugs. Family History: family history includes Cancer in her brother; Diabetes in her brother and grandmother (maternal); Eye Problems in her none; Heart Disorder in her brother, father, and sister; Hypertension in her mother; Stroke in her mother; Thyroid Disorder in her sister. Anesthesia History Type of Anesthesia: General Endotracheal and Caudal block Anesthesia reaction: No History of surgical complications: none other than nausea from oxycodone Personal history of venous thromboembolic disease: none Physical Exam Vitals: 05/29/24 0851 Temp: 36.3 C (97.4 F) Pulse: 73 Resp: 16 SpO2: 96% BP: 132/80 BMI: 26.08 General: alert, healthy, and no distress Head: Normocephalic, No masses, lesions, tenderness or abnormalities Eye Exam: PERRLA, extraocular movements intact, conjunctiva are pink and non- injected, sclera clear Ears: External ears normal, Canals clear, TM's Normal Nose: no mucosal erythema, no mucosal edema, no purulent discharge Oropharynx: no exudate, no erythema, lips, buccal mucosa, and tongue normal, and mucous membranes are moist Neck: supple, no adenopathy, no bruits, thyroid normal size, non-tender, without nodularity, trachea midline Heart: regular rate & rhythm, no murmur, no gallops, S-1 normal, and S-2 normal Lungs: chest symmetric with normal AP diameter, no chest deformities noted, no chest wall tenderness, lungs clear to auscultation Pulses: carotid=2/4 w/o bruits Abdomen: abdomen soft, non-tender, normal bowel sounds, and no masses or organomegaly Back: back symmetric, no curvature, no costovertebral angle tenderness, range of motion is normal Extremities: less than 2 second capillary refill, no joint deformities, effusion, or inflammation Neuro Exam: alert & oriented x 3 with fluent speech, no focal motor/sensory deficits, gait normal, reflexes normal and symmetric Skin: skin color, texture, turgor are normal, resolving chigger bites on legs, no evidence of infection Labs reviewed and are significant for: normal Component Latest Ref [facility] 12/11/2023 BUN 6 - 20 mg/dL 14 Creatinine 0.5 - 1.0 mg/dL 0.9 Estimated Glomerular Filtration Rate >=60 mL/min 65 Sodium 135 - 146 mmol/L 139 Potassium 3.5 - 5.1 mmol/L 4.3 Chloride 98 - 107 mmol/L 101 CO2 22 - 32 mmol/L 25 Anion Gap 7 - 15 mmol/L 13 Glucose 70 - 120 mg/dL 80 Albumin 3.8 - 5.0 g/dL 4.5 AST 10 - 35 U/L 26 Alkaline Phosphatase 35 - 130 U/L 110 Bilirubin, Total <=1.2 mg/dL 0.3 Calcium 8.4 - 10.2 mg/dL 9.1 Protein 6.0 - 8.3 g/dL 6.8 ALT 10 - 35 U/L 17 Triglycerides <=174 mg/dL 121 Cholesterol <200 mg/dL 197 HDL Cholesterol >49 mg/dL 83 Non-HDL Cholesterol <=159 mg/dL 114 LDL Cholesterol <=129 mg/dL 90 Albumin, Random Urine mg/dL <1.20 Creatinine, Random Urine mg/dL 39 Albumin / Creatinine Ratio, Urine <30 mg/g Creat Uninterpretable Albumin/Creatinine ratio due to very low albumin and creatinine values. TSH 0.27 - 4.20 uIU/mL 2.32 HGB 12.0 - 15.3 g/dL 14.2 Phosphorus 2.5 - 4.8 mg/dL 3.[address] Quinones - no acute issues, I concur Labs reviewed - no acute issues Chest xray reviewed - no acute issues All to be scanned Surgical Risk Scoring Revised Cardiac Risk Index (RCRI) High-risk type of surgery (examples include vascular and any open intraperitoneal or intrathoracic procedures): 1=Yes History of ischemic heart disease (history of myocardial infarction or positive exercise test, current compliant of chest pain considered to be secondary to myocardia ischemia, use of nitrate therapy, or ECG with pathological Q waves; do not count prior coronary revascularization procedure unless one of the other criteria for ischemic heart disease is present): 0=No History of heart failure: 0=No History of cerebrovascular disease: 0=No Diabetes mellitus requiring treatment with insulin: 0=No Preoperative serum creatinine >2.0 mg/dL (177 micromol/L): 0=No Pt has revised cardiac index score of: One Risk Factor- 1.0% (95% CI: 0.5-1.4) Screening for Obstructive Sleep Apnea (STOP-BANG) Do you Snore loudly? 0=No Do you often feel Tired, Fatigued, or Sleep? 0=No Has anyone Observed you Stop Breathing or Choking/Gasping during sleep? 0=No Do you have or are you being treated for High Blood Pressure? 0=No BMI over 35? 0=No Age older than 50? 1=Yes Neck size large? (For males - 17 inches or larger, For females - 16 inches or larger) 0=No Male? 0=No Score 0-2:low risk EDUARDO, 3-4: intermediate risk of EDUARDO, 5-8: high risk EDUARDO 1 Assessment and Plan Functional Assessment They are able to walk up a flight of stairs. The patient's functional status is good (greater than 4 METS). 1 MET: 4 METs: 4-10 METs: Can take care of self, such as eat, dress or use the toilet. Can walk to block or go up a flight of steps. Can do heavy house work. Surgical Risk Assessment Patient is low medical risk for the listed procedure. Patient is cleared for surgery Pre-operative cardiovascular examination (Primary) Nausea - Ondansetron 4 MG Oral Tablet Disintegrating (Zofran); Place 1 Tablet on tongue every 8 hours as needed for Nausea. dissolve on tongue. Adverse effect of agent primarily affecting gastrointestinal system, initial encounter - Ondansetron 4 MG Oral Tablet Disintegrating (Zofran); Place 1 Tablet on tongue every 8 hours as needed for Nausea. dissolve on tongue. Primary osteoarthritis of left knee Stage 3a chronic kidney disease - labs stable, no acute issues Other specified hypothyroidism Lab Results Component Value Date/Time TSH - [facility] 2.32 12/11/2023 11:54 AM TSH - [facility] 0.25 (L) 11/11/2022 10:31 AM TSH - [facility] 0.19 (L) 05/11/2022 10:07 AM TSH - [facility] 0.38 10/28/2020 09:22 AM TSH - [facility] 1.65 04/28/2020 11:59 AM TSH - [facility] 0.26 (L) 07/05/2019 01:59 PM Estephania Corrigan PA-C 05/29/2024 10:19 AM documented in this encounter Nursing Notes * Danielle Hendricks LPN - 05/29/2024 8:51 AM EDT Paulina Lopez is a 79 year old female who presents today for Chief Complaint Patient presents with pre-op exam Pt states that she is here for a pre op for a Knee Replacement on June [address] Bello documented in this encounter Plan of Treatment Upcoming Encounters Date Type Department Care Team (Stephan Contact Info) Description 05/30/2024 1:45 PM EDT Imaging Radiology [facility] [place] [address] [place] [id number] 07/23/2024 4:00 PM EDT Office Visit [facility] [address] [facility] [address] Westley Pedraza [facility] [address] [facility] [address] Health Maintenance Due Date Last Done Comments Depression Screening 05/11/2023 05/11/2022 COVID-19 Vaccine ( season) 2023 07/30/2021, 01/08/2021, 12/18/2020 GFR 06/10/2024 12/11/2023, 05/30, 01/30/2023, Additional history exists Influenza Vaccine (FLU shot) (#1) 2024 08/20/2023, 08/20/2022, 08/09/2021, Additional history exists Albumin/Creatinine Ratio 12/11/2024 12/11/2023, 04/01 CKD HGB USE SMARTSET 27785 12/11/202412/11, 01/30/2023, 05/11/2022, Additional history exists CKD PHOS USE SMARTSET 13081 12/11/202411/30, 11/10/2021, 04/28/2020 TSH 12/11/2024 12/11/2023, 10/30, [...] Not on filedocumented as of this encounter Visit Diagnoses Diagnosis Pre-operative cardiovascular examination- Primary Nausea Nausea alone Adverse effect of agent primarily affecting gastrointestinal system, initial encounter Primary osteoarthritis of left knee Primary localized osteoarthrosis, lower leg Stage 3a chronic kidney disease Other specified hypothyroidism Screening mammogram for breast cancer documented in this encounter Care Teams Culinary Internship Relationship Specialty Start Date End Date Westley Pedraza MD [address] [place] [address] PCP - General Family Medicine 12/13/18 documented as of this encounter
--- OUTSIDE RECORDS SUMMARY | 2024-06-12 05:58 | External Medical Summary | Continuity of Care Document ---
Author Name Unknown Organization [id number] Address [address] [place] [id number] Care Team Providers Care Tandem Operator Name Role Phone Westley Pedraza Primary Care Physician [phone] [id number] Date(s): 05/23/24 - 05/23/24 [facility] [address] [place], [place] [address]A [facility] [address] [place] [id number] Encounter Diagnosis Left knee DJD(Discharge Diagnosis) - 05/23/24 Discharge Disposition: Home or Self Care Attending Physician: YULIYA Araya, Jaquan Hunter Referring Physician: MD Ace, Axel Renee Allergies, Adverse Reactions, Alerts Substance Criticality Severity Reaction Reaction Severity Status Keflex Unable to assess criticality Mild Diarrhea Active Medications amoxicillin 500 mg oral capsule Start: 09/20/23 8:15:00 AM EST, 4 cap, PO, As indicated, Disp# 4 cap, Refills: 3, one hour before dental and other procedures as directed, Pharmacy: [id number] Start Date: 09/20/23 Status: Ordered diclofenac sodium 75 mg oral delayed release tablet Start: 09/20/23 8:14:00 AM EST, 1 tab, PO, bid, Disp# 60 tab, Refills: 1, with food, PRN: as neededfor pain, Pharmacy: [id number] Start Date: 09/20/23 Stop Date: 11/19/23 Status: Ordered Euflexxa 10 mg/mL intra-articular solution Start: 08/28/23 11:25:00 AM EDT, 25 mg =, intra-articular, q7days, Disp# 2 mL, Refills: 0, r knee series 3 euflexxa, Pharmacy: [id number] Start Date: 08/28/23 Status: Ordered Euflexxa 10 mg/mL intra-articular solution Start: 11/08/23 11:36:00 AM EST, 20 mg =, intra-articular, q7days, Disp# 12 mL, hayder knee euflexxa series, Brand Medically Necessary Start Date: 11/08/23 Status: Ordered Euflexxa 10 mg/mL intra-articular solution Start: 06/26/23 9:41:00 AM EDT, 25 mg =, intra-articular, q7days, Disp# 2 mL Start Date: 06/26/23 Status: Ordered Fish Oil 1000 mg oral capsule Start: 01/08/18 1:52:00 PM EDT, 1 cap, PO, Daily Start Date: 01/08/18 Status: Ordered folic acid Start: 04/01/21 12:33:00 PM EDT, 800 mg =, PO, every other day Start Date: 04/01/21 Status: Ordered Marylu Root oral capsule Start: 04/08/19 9:17:00 AM EDT, 550 mg =, PO, Daily Start Date: 04/08/19 Status: Ordered levothyroxine 88 mcg (0.088 mg) oral tablet Start: 07/24/20 9:00:00 AM EDT, 1 tab, PO, Daily Start Date: 07/24/20 Status: Ordered magnesium gluconate Start: 04/01/21 12:32:00 PM EDT, 400 = mg, PO, every other day Start Date: 04/01/21 Status: Ordered niacin 500 mg oral capsule Start: 04/01/21 12:33:00 PM EDT, 1 cap, PO, every other day Start Date: 04/01/21 Status: Ordered Osteo Bi-Flex Plus MSM Start: 10/14/19 1:27:00 PM EST, 1 tab, PO, Daily Start Date: 10/14/19 Status: Ordered potassium bicarbonate Start: 01/30/23 10:46:00 AM EDT Start Date: 01/30/23 Status: Ordered rifAMPin 150 mg oral capsule Start: 07/20/23 3:26:00 PM EDT, See Instructions, Disp# 15 cap, Refills: 2, 1 hour before or 2 hoursafter meals one capsule qod, Pharmacy: [id number] Start Date: 07/20/23 Status: Ordered simvastatin 20 mg oral tablet Start: 07/24/20 9:00:00 AM EDT, 1 tab, PO, qhs Start Date: 07/24/20 Status: Ordered traMADol 50 mg oral tablet Start: 09/29/16 3:23:00 PM EST, 1 tab, PO, q4h, PRN: as needed for pain Start Date: 09/29/16 Status: Ordered turmeric Start: 01/30/23 10:46:00 AM EDT Start Date: 01/30/23 Status: Ordered vitamin A Start: 01/30/23 10:46:00 AM EDT Start Date: 01/30/23 Status: Ordered Vitamin B12 Start: 04/01/21 12:34:00 PM EDT, 1,000 mcg =, PO, every other day Start Date: 04/01/21 Status: Ordered Vitamin C 500 mg oral tablet Start: 11/20/13 9:19:00 AM EST, 1 tab, PO, Daily Start Date: 11/20/13 Status: Ordered Vitamin D3 Start: 04/01/21 12:33:00 PM EDT, 125 mcg =, PO, Daily Start Date: 04/01/21 Status: Ordered Zinc Start: 04/12/18 2:35:00 PM EDT, 50 mg =, PO, every other day Start Date: 04/12/18 Status: Ordered Mental Status 05/23/24 Barriers to Learning one year None evide nt Mandatory Health Literacy Documentation Yes Health Literacy Communication Barriers N ever Primary Language [place] Problem List Condition Confirmation Course Effective Dates Status H ealth Status Informant Right hip pain Confirmed Active Polyarthralgia Confirmed Active Bilateral shoulder region arthritis. Confirmed Active Cholesterol 1 Confirmed Active Colon cancer Confirmed Active Primary osteoarthritis of right hip Confirmed Active Osteoarthritis of knee Confirmed Active Postoperative complication of skin involving drainage from surgical wound Confirmed Active Sacral insufficiency fracture Confirmed Active Status post replacement of left shoulder joint Confirmed Active S/p bilateral shoulder joint replacement Confirmed Active Status post replacement of right shoulder joint Confirmed Active Hypothyroidism Confirmed Active Shoulder impingement syndrome Confirmed Active Lyme disease Confirmed Active Knee pain, right Confirmed Active Knee pain 2 Confirmed Active Low back pain Confirmed Active Neurogenic claudication Confirmed Active Osteoarthritis of left shoulder Confirmed Active Osteoarthritis of right shoulder Confirmed Active Right knee DJD Confirmed Active Pain in thumb Confirmed Active Bilateral primary osteoarthritis of knee Confirmed Active Radicular syndrome of right leg Confirmed Active Bilateral sacroiliitis Confirmed Active Right shoulder pain Confirmed Active Spinal stenosis Confirmed Active Rotator cuff strain Confirmed Active 1high cholesterol 2left knee pain Diagnosis Diagnosis Type Effective Dates Health Status Cl inical Service Informant Left knee DJD Discharge Diagnosis 05/23/24 Procedures Procedure Date Related Diagnosis Body Site Status Colonoscopy 1, 2 01/24/22 Complete d Laminectomy 3 04/06/21 Completed Hernia 2018 Completed Shoulder replacement, left 2018 Completed Colonoscopy 2017 Completed Hip replacement, right 2017 Co mpleted Colon, sx 4 2003 Completed 1COLO to cecum, anastomosis at rectosigmiod, 2 rectal polyps CF. 22 hyperplastic polyps Repeat Colonoscopy in 5 years. F/U with PCP prn 3lower back 4colon sx Vital Signs Most recent to oldest [Reference Range]: 1 Height 163.0 cm (05/23/24 1:02 PM) Patient Weight 69.0 kg (05/23/24 1:02 PM) Body Mass Index 25.97 kg/m2 (05/23/24 1:02 PM) Temperature [36.5-37.9 DegC] 36.4 DegC *LOW* (05/23/24 1:02 PM) Respiratory Rate 20 br/min (05/23/24 1:02 PM) Blood Pressure 128/82mmHg (05/23/24 1:02 PM) Social History Social History Type Response Smoking Status Never smoked cigaret marleen Sex Female Sex Representation Female (finding) Patient Care team information Care Team Personnel Name: MD Keila, Westley Rivas Position: Referring DIRECT Member Role: Primary Care Provider Address: [address] [place] [address] [place] Care Team Related Persons Name: JOHANNA RUBIN Name: JOHANNA RUBIN Name: LORETA RUBIN Name: LORETA RUBIN
[2024-06-12] MEDS ORDERED: BUPIVACAINE 0.5 % 5 MG/1 ML PF 10ML VIAL ONE (06:22)
[2024-06-12] MEDS ORDERED: EPINEPHrine INJ 1 MG/ML AMP ONE (06:22)
[2024-06-12] MEDS ORDERED: ROPIVACAINE 0.5% 5 MG/ML 30 ML VIAL ONE (06:23)
[2024-06-12] MEDS ORDERED: MIDAZOLAM HCL 1 MG/ML 2ML VIAL ONE (06:36)
[2024-06-12] MEDS: TRANEXAMIC ACID 1,000 MG **IV Pre-op IV SCH (06:38)
[2024-06-12] MEDS ORDERED: PROPOFOL IV EMULSION 10 MG/ML 20 ML VIAL IV ONE ×3 (07:15→08:02)
[2024-06-12] MEDS ORDERED: ePHEDrine sulfate 50 MG/5 ML SYR ONE (07:21)
[2024-06-12] MEDS: TRANEXAMIC ACID 1,000 MG **IV Intra-op IV SCH (08:03)
[2024-06-12] MEDS: ORTHO JOINT ANESTHETIC ONE (08:07)
[2024-06-12] MEDS: ROPIV 0.5% 246mg, Ketorolac 30mg, EPINEPHrine 0.5mg in NSS INFIL SCH (08:13)
--- NOTE | 2024-06-12 08:30 | Post Operative Brief Note ---
Immediate Post Op Note Date of Surgery June 12, 2024 Pre & Post Diagnosis Operation Date: 06/12/24 07:00 <No data on this case meets the specified criteria> Osteoarthritis with varus flexion deformity left knee pre and postop diagnosis same I identified the patient and participated in the time-out.: Yes Procedure Operation Date: 06/12/24 07:00 <No data on this case meets the specified criteria> Cemented left total knee replacement Surgeon Axel Bello MD Sales Representative [employer] Yamila/Crystal Estimated Blood Loss 25 Findings Consistent with Post-Op Diagnosis Severe tricompartmental osteoarthritis with flexion varus deformity left knee Fluids See anesthesia report Complications None
--- NOTE | 2024-06-12 08:33 | Operative Report ---
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 pre and postop diagnosis same I identified the patient and participated in the time-out.: Yes Procedure Operation Date: 06/12/24 07:00 <No data on this case meets the specified criteria> Cemented left total knee replacement Surgeon Axel Bello MD Product Coordinator Yamila/Crystal Estimated Blood Loss 25 Findings Consistent with Post-Op Diagnosis Severe tricompartmental osteoarthritis Fluids See anesthesia report Specimens Bone pathology Drains None Complications None Indications Severe pain failed conservative management over years Description of Procedure After the patient was appropriate notified site verified consent verified antibiotics confirmed to be given the left lower extremity was prepped and draped use routine fashion. Tourniquet was inflated to 275 mmHg after exsanguination limb with a rubber Esmarch bandage for total of 52 minutes. Midline exposure was utilized. Parapatellar arthrotomy performed. Synovectomy completed osteophytes resected distal femur entered cruciates resected tibia subluxated menisci resected. Distal femur resected 11 mm proximal tibia 4 mm the extension gap was excellent. The tibia was sized to a size 5 the femur to a size 6 appropriate anterior posterior, chamfer cuts made the flexion gap was checked and was excellent box cut was then made. Lug holes succeeding drills were made. Size 6 fit well. Narrow. Tibia was then subluxated appropriate broaching and reaming carried out for the size 5. The size 6 spacer matching the femur 6 mm thick was excellent. The midrange stability was excellent as well as full flexion extension range of motion the patella tracked well. The patella was resected leaving roughly 15 mm. 35 button was then seated. Tracked well. Ortho mix was then injected all around the knee the trial elements removed wound was irrigated with Pulsavac soaked in Betadine for 2 minutes then the permanent cemented into position tibia femur and patella in that order at 12 minutes of tourniquet deflated minor bleeding points controlled electrocautery 14 minutes knee was flexed the spacer removed and no cement removal was required. Wound was irrigated 1 final time with Pulsavac soaked in Betadine and then the permanent liner seated knee reduced and closed at 40 degrees of flexion with #2 Vicryl for the fascial layer 2-0 Vicryl for the subcutaneous layer and stainless miguel for skin. Appropriate dressing applied the patient transferred recovery in satisfactory condition having tolerated the procedure well. Summary of implants ATT UNE knee replacement 6 narrow femur left 5 tibia 35 p atella 6 x 6 insert posterior cruciate substituting. 2 bags of Pal[place]os G cement. Implant made by [employer] I attest to the content of the Intraoperative Record and any orders documented therein. Any exceptions are noted below.
--- NOTE | 2024-06-12 08:35 | Discharge Summary ---
Date of Service June 13, 2024 Admission HPI Per Admitting Provider Severe left knee pain Principal Diagnosis Osteoarthritis left knee Discharge Data Allergies Allergy/AdvReac Type Severity Reaction Status Date / Time oxycodone AdvReac Mild NAUSEA Verified 06/12/24 05:35 cephalexin AdvReac extreme Verified 06/12/24 05:35 diarrhea Vaccinations None Consultations None Procedures Performed Operation Date: 06/12/24 07:00 <No data on this case meets the specified criteria> Cemented left total knee replacement Ordered Studies 06/12/24 05:00 US - OR guided needle placemen Routine Hospital Course (1) Status post left knee replacement: Total Time Total Time Spent Total Time Spent (In Minutes): 5 Discharge Plan Discharge Items Reason For Visit: Left Knee Osteoarthritis Discharge Diagnosis: Same Condition on Discharge: Good Activity: Per Instructions section Lifting: No more than 5 pounds Bathing: Keep incision dry Sexual Activity: Wait until after follow-up appointment Exercise/Sports: Wait until after follow-up appointment Non-emergency contact: Surgeon Call non-emergency contact if: your pain is not controlled, your temperature is above 101, your temperature is above 101.5, your wound has increased redness, your wound has increased drainage and your wound pain has increased Follow-up/Referrals: Westley Pedraza MD [Primary Care Provider] - Jaquan Araya PA-C [Physician Retail Leader] - 06/27/24 1:00 pm Diet: Regular Addtl Attending Provider Instructions: New Medicine: * You will likely be taking one or more of these medications: 1. Percocet - Take, as directed, when you need it, every four to six hours to control your pain. 2. Iron Sulfate - Take 1x each day for the month after surgery to help you replace the blood lost during surgery. 3. Eliquis- Thins your blood to lessen the chance of forming a blood clot. * The most common side effects of pain medicine and iron are nausea and constipation. If nausea or constipation is too much of a problem or if you have any questions about your new medicines or doses, call [facility] at . We will try to help you manage these issues. "VERY IMPORTANT TO READ AND REVIEW" Blood Clots and Blood Thinning Medicine: * You are given Eliquis during the immediate post-operative period to lessen the risk of blood clots forming in your legs and/or lungs. It is usually given for 4 weeks after surgery. Pain: * The immediate post-operative period after knee replacement surgery is often quite painful. * You are given a prescription for pain medicine. You should take it, as directed, when you need it, especially before physical therapy and before going to bed. Pain that interferes with sleep is very common and can last several months. * You will likely need pain medicine for the first four to six weeks. It will not stop all of the pain. The pain will lessen and as you feel better, you may change to milder pain medicine such as Tylenol. * The most common side effects of pain medicine are nausea and constipation, so don't take more than you need. Physical Therapy: * You will have physical therapy two or three times each week for four to six weeks after your surgery in order to regain your knee range of motion and to retrain your knee to work properly. * It is just as important to make sure you are getting your knee perfectly straight as it is to regain your knee bend. * Taking a pain pill an hour before therapy can help you have a more productive and comfortable therapy session if needed. Home Exercise: * You were shown a series of exercises (heel props, heel slides, etc.) in the hospital. Do these exercises three to four times each day including the exercises you were shown in physical therapy. Walking: * Get up and walk several times each day. For the first four weeks, try not to stand or walk for more than one hour at a time. If you do stand or walk for more than one hour, you will not hurt anything, but your knee and leg will likely swell. * As you feel comfortable, you may change from the walker or crutches to a cane and then to independent walking. SELF CARE INSTRUCTIONS AFTER TOTAL KNEE REPLACEMENT A. You may need to continue a physical therapy program after discharge from the hospital. There are several options available to you. Your doctor will assist you in selecting the best one for you. 1. An out-patient facility 2 to 3 times a week for therapy or home therapy. 2. Continue working on all exercises taught to you in the hospital. Your goals should be to increase bending of your knee to 90 degrees and beyond and to fully straighten your knee. B. You may progress at your own pace from walking with a walker or crutches to a cane; then to no assistive devices. C. Make walking a part of your daily routine. Be up as much as comfortable with rest periods throughout the day. Rest with leg elevation is very important. Use the ice wrap frequently for the first 3-4 weeks. D. There are no restrictions on activities. You may ride in a car, shop, participate in silk screen frame assembler and all social activities. E. Wear the long elastic stockings (KARAN hose) 20 hours a day for six weeks after surgery. They can be removed several times a day for laundering and for a shower. F. Do not place a pillow behind your knee when resting. A pillow at your ankle is okay. VERY IMPORTANT TO READ AND REVIEW A. Take Eliquis (blood thinning medication) as directed by your doctor. B. There are a few signs you need to watch for after you are home. Call [facility] if you notice any of the followin. Increased severe knee pain. Some pain is expected especially when you exercise. 2. Increased swelling in your leg or knee; pain or swelling of the calf muscle in either lower leg. 3. Any fluid drainage from the incision. 4. Shortness of breath or chest pain. C. Please call [facility] at if you have any concerns or questions about your operation or recovery. The doctor or his nurse will return your call promptly. D. You must take antibiotics before dental work, bladder, bowel or other surgery. Call the office to obtain a prescription at least 2 days prior to your appointment. * CALL IF INCREASED PAIN, REDNESS, DRAINAGE OR FEVER GREATER THAT 101. * Sutures should be removed 12-14 days after surgery unless you are on chronic steroids, then it will be 14-18 days after surgery. Call your doctor if: * Temperature above 101 degrees F. * Pain not relieved by pain medicine ordered. * Increased drainage or redness from incision. * Notify your doctor with any questions or concerns. DIET: * Resume previous diet. MEDICATIONS: * Please take your prescriptions as instructed at your pre-op appointment and/or see medication discharge instructions listed above. * If concerns develop, call your physician's office at . SPECIAL CARE INSTRUCTIONS: * Ice/Elevate as instructed. * Keep dressing clean, dry, intact. * Your surgical extremity may be discolored due to prepping agents used on the skin. A bluish-green tint is a normal variant and should not cause alarm. Call your doctor at [phone] if: * Temperature above 101 degrees * Pain not relieved by pain medicine ordered * There is increased drainage or redness from any incision * You have any unanswered questions, problems or concerns. FOLLOW UP VISIT: * If not already scheduled, please call the office at to schedule a follow-up appointment. Take Eliquis, blood thinner 2 times per day for 4 weeks to prevent clots Use your knee immobilizer when out of bed on and Monday. It may be discontinued entirely on Monday morning Use your walker for ambulation Ice and elevate the knee frequently to reduce pain and swelling Leave the postsurgical dressing in place through the weekend. It can be changed on Monday by home health if needed for soiling Pending Studies at Discharge: Yes (Bone pathology) Stand-Alone Forms: My [facility] Medications and DC Order Prescriptions: No Action ascorbic acid (vitamin C) 1,000 mg Tablet Extended Release 1,000 mg PO QPM magnesium oxide 400 mg (241.3 mg magnesium) Tablet 400 mg PO Q2D simvastatin 20 mg Tablet 20 mg PO HS cholecalciferol (vitamin D3) 1,000 unit Tablet 1,000 unit PO QPM turmeric root extract 500 mg Capsule 500 mg PO QAM niacin 500 mg Tablet 500 mg PO Q2D dejah (Zingiber officinalis) 550 mg Capsule 550 mg PO QAM methylsulfonylmethane [MSM] 1,000 mg Tablet 1,000 mg PO QAM tramadol 50 mg Tablet 50 mg PO BID PRN (Reason: Pain) Patient Comments: RARELY USES cyanocobalamin (vitamin B-12) 1,000 mcg Tablet 1,000 mcg PO Q2D acetaminophen 500 mg Capsule 500 mg PO Q6H PRN (Reason: Pain) zinc 50 mg Tablet 50 mg PO QPM potassium gluconate 595 mg (99 mg) Tablet 595 mg PO Q2D melatonin 10 mg Tablet 5 - 10 mg PO HS PRN (Reason: Sleep) levothyroxine 75 mcg Tablet 75 mcg PO QAM ferrous sulfate 325 mg (65 mg iron) Capsule, Extended Release 325 mg PO QPM Fish Oil 900-1,400 mg Capsule,Delayed Release(Dr/Ec) 1 cap PO QPM Hyaluronic Acid (chond-collgn) 40-80-400 mg Capsule 1 cap PO DAILY hydrocodone-acetaminophen 5-325 mg tablet 2 tab PO Q6H PRN (Reason: pain) Qty: 18 0RF Rx Instructions: initial script Glucosamine Sulf-Chondroitin 500-400 mg Capsule 1 cap PO DAILY Rx Instructions: give with meal/snack krill oil 500 mg Capsule 500 mg PO DAILY Vital Proteins Collagen 4 gummy PO QAM Admission Data Admit Date/Time: 06/12/24 08:49 Attending Provider: Axel Bello Admit Provider: Axel Bello Primary Care Provider: Westley Pedraza Other Providers: [facility],Home Health
--- NOTE | 2024-06-12 08:36 | Orthopedic Progress Note ---
Date of Service June 12, 2024 Subjective Patient tolerated left total knee replacement well. Denies chest pain shortness of breath fever chills nausea vomiting or headache. Vital signs are stable she is afebrile. Neurovascular check limited by spinal. Postop x-rays pending. Wound dressing clean dry and intact. Family contacted. She will stay overnight to be discharged tomorrow. Results & Data Vital Signs (Past 12 Hours) Vital Signs Temp Pulse Resp BP Pulse Ox O2 Del Method 06/12/24 05:32 36.5 C 69 20 169/92 H 96 Room Air
--- NOTE | 2024-06-12 08:43 | Operative Report ---
Post Operative Report Pre & Post Diagnosis Operation Date: 06/12/24 07:00 Pre-Op Diagnosis: Left Knee Osteoarthritis Post-Op Diagnosis: Left Knee Osteoarthritis I identified the patient and participated in the time-out.: Yes Procedure Operation Date: 06/12/24 07:00 Actual Procedures p Left Total Knee Arthroplasty(Left) - Axel Bello MD Surgeon Axel Bello MD Assistant Curator Yamila/Crystal Estimated Blood Loss 25 Findings Consistent with Post-Op Diagnosis Specimens Bone pathology Complications None Description of Procedure Patient underwent regional anesthesia, she was brought to the operating room where she underwent sedation per the anesthesia providers. Patient was positioned, prepped and draped in usual sterile fashion. Left total knee arthroplasty was performed, please see Dr. Bello's operative note for full details. I was present throughout duration of case assisting with positioning, soft tissue retraction, hardware placement, closure of wound, and postoperative dressing placement. Patient was awoken and taken recovery room in stable condition. I attest to the content of the Intraoperative Record and any orders documented therein. Any exceptions are noted below.
--- NOTE | 2024-06-12 08:53 | Operative Report ---
Post Operative Report Pre & Post Diagnosis Operation Date: 06/12/24 07:00 Pre-Op Diagnosis: Left Knee Osteoarthritis Post-Op Diagnosis: Left Knee Osteoarthritis I identified the patient and participated in the time-out.: Yes Procedure Operation Date: 06/12/24 07:00 Actual Procedures p Left Total Knee Arthroplasty(Left) - Axel Bello MD Surgeon Axel Bello M.D. Counseling Services Director Yamila/Crystal Estimated Blood Loss 25 Findings Consistent with Post-Op Diagnosis Specimens bone and soft tissue Anesthesia Type MAC Spinal Regional Description of Procedure Patient was taken to the operating room, placed under IV sedation and spinal anesthesia, given preoperatively peripheral nerve block of left lower extremity. She was given 1 gm IV vancomycin preoperatively. She was given 1 gm IV TXA preoperatively. I was present during the entire case, please see Dr. Bello's operative report for further detail. Patient was awakened and taken to the recovery room in stable condition. I attest to the content of the Intraoperative Record and any orders documented therein. Any exceptions are noted below.
[2024-06-12] MEDS ORDERED: PROMETHAZINE HCL 6.25 MG in SODIUM CHLORIDE 0.9% 50 ML IV PRN (09:08)
[2024-06-12] MEDS ORDERED: ePHEDrine sulfate 50 MG/ML AMP IV PRN (09:08)
[2024-06-12] MEDS ORDERED: NALOXONE HCL 0.4 MG/1 ML VIAL/CARP IV PRN ×2 (09:08→10:08)
[2024-06-12] MEDS ORDERED: ATROPINE SULFATE 0.1 MG/ML 10ML SYR IV PRN (09:08)
[2024-06-12] MEDS ORDERED: ONDANSETRON INJ 2 MG/ML 2 ML VIAL IV PRN (09:08)
[2024-06-12] MEDS ORDERED: fentaNYL citrate PF 100 MCG/2 ML VIAL IV PRN (09:08)
[2024-06-12] MEDS ORDERED: Nursing to Pharmacy Communication SCH (09:15)
--- NOTE | 2024-06-12 09:27 | Anesthesiology Progress Note ---
Date of Service June 12, 2024 Anesthesia Post Procedure Vital Signs Vital Signs: Temp Pulse Pulse Resp BP Pulse Ox O2 Del Method 06/12/24 09:15 60 12 136/59 L 99 Oxymask 06/12/24 09:05 62 18 154/52 H 100 Oxymask 06/12/24 08:55 60 18 140/58 L 97 Oxymask 06/12/24 08:45 64 16 138/51 L 98 Oxymask 06/12/24 08:37 36.5 C 75 16 121/44 L 96 Oxymask 06/12/24 05:32 36.5 C 69 20 169/92 H 96 Room Air O2 Flow Rate 06/12/24 09:15 3 06/12/24 09:05 3 06/12/24 08:55 6 06/12/24 08:45 6 06/12/24 08:37 6 06/12/24 05:32 Transfer of Care Handoff Completed per policy Notes Mental Status: alert / awake / arousable Patient Amnestic to Procedure: Yes Nausea / Vomiting: adequately controlled Pain: adequately controlled Airway Patency, RR, SpO2: stable & adequate BP & HR: stable & adequate Hydration State: stable & adequate Anesthetic Complications: no major complications apparent
--- NOTE | 2024-06-12 09:42 | XRay Report ---
LEFT KNEE 2 VIEWS History: Left total knee arthroplasty. Degenerative arthritis. Postop. FINDINGS: The patient is status post a left total knee arthroplasty. The hardware is intact. No fract ure or dislocation. Skin miguel are in place. IMPRESSION: Left total knee arthroplasty. No evidence for hardware complication. ACT 112: Negative or not required by law. Electronically signed by: Aniceto Montaño M.D. 06/12/2024 9:40 AM
--- NOTE | 2024-06-12 09:56 | Anesthesiology Progress Note ---
Date of Service June 12, 2024 Anesthesia Post Procedure Vital Signs Vital Signs: Temp Pulse Pulse Resp BP Pulse Ox O2 Del Method 06/12/24 09:44 36.5 C 58 L 16 146/72 H 94 Room Air 06/12/24 09:25 36.4 C L 64 12 141/59 H 99 Room Air 06/12/24 09:15 60 12 136/59 L 99 Oxymask 06/12/24 09:05 62 18 154/52 H 100 Oxymask 06/12/24 08:55 60 18 140/58 L 97 Oxymask 06/12/24 08:45 64 16 138/51 L 98 Oxymask 06/12/24 08:37 36.5 C 75 16 121/44 L 96 Oxymask 06/12/24 05:32 36.5 C 69 20 169/92 H 96 Room Air O2 Flow Rate 06/12/24 09:44 06/12/24 09:25 06/12/24 09:15 3 06/12/24 09:05 3 06/12/24 08:55 6 06/12/24 08:45 6 06/12/24 08:37 6 06/12/24 05:32 Transfer of Care Handoff Completed per policy Notes Mental Status: alert / awake / arousable Patient Amnestic to Procedure: Yes Nausea / Vomiting: adequately controlled Pain: adequately controlled Airway Patency, RR, SpO2: stable & adequate BP & HR: stable & adequate Hydration State: stable & adequate Neuraxial Anesthesia: was administered and sensory block is resolving Anesthetic Complications: no major complications apparent
[2024-06-12] MEDS ORDERED: NON-FORMULARY MEDICATION (Potassium Gluconate 595 mg (99 mg) Tablet) PO SCH (10:08)
[2024-06-12] MEDS ORDERED: HYDROmorphone INJ 1 MG/ML SYRINGE IV PRN (10:08)
[2024-06-12] MEDS ORDERED: traMADol HCL 50 MG TABLET PO PRN ×2 (10:08)
[2024-06-12] MEDS ORDERED: hydrALAZINE HCL 20 MG/ML VIAL IV PRN (10:08)
[2024-06-12] MEDS ORDERED: [UNRECOGNIZED DRUG - OTHER] PO SCH (10:08)
[2024-06-12] MEDS ORDERED: MAGNESIUM HYDROXIDE SUSP 30 ML UDC PO PRN (10:08)
[2024-06-12] MEDS ORDERED: HYDROmorphone INJ 0.5 MG/0.5 ML SYR IV PRN (10:08)
[2024-06-12] MEDS ORDERED: bisacodyL 10 MG SUPP PR PRN (10:08)
[2024-06-12] MEDS ORDERED: GINGER 550 MG PO SCH (10:08)
[2024-06-12] MEDS: ceFAZolin 1000MG 1,000 MG/7.5 ML SYR IV ONE (10:59)
--- NOTE | 2024-06-12 11:33 | Orthopedic Progress Note ---
Date of Service June 12, 2024 Assessment & Plan Admission and Anticipated Discharge Date Admission Date: June 12, 2024 Orthopedic Progress Note Postop check status post left total knee replacement. Patient is resting comfortably in bed doing her exercises. She denies any pain. Denies chest pain shortness of breath fever chills nausea vomiting or headache. Vital signs are stable she is afebrile. Neurovascular check femoral sciatic nerve is normal. Can do a straight leg raise and heel slides. She is trying to negotiate to go home. I told her at this point time she stay overnight to get better balance better coordination of PT services glass bulb silverer. She has not in hospice and has a lot of steps to get to various rooms in the house. Postop x-rays look excellent. Assessment doing well continue care pathway for total knee replacement. Discharge tomorrow.
[2024-06-12] MEDS: SODIUM CHLORIDE 0.9% 1,000 ML IV SCH (11:35)
[2024-06-12] MEDS: MULTIVITAMIN TAB PO SCH (11:38)
[2024-06-12] MEDS: LEVOTHYROXINE SODIUM 75 MCG TABLET PO SCH (11:38)
[2024-06-12] MEDS: DOCUSATE SODIUM 100 MG CAP PO SCH (11:38)
[2024-06-12] MEDS: KETOROLAC TROMETHAMINE 15 MG/ML VIAL IV SCH (12:06)
[2024-06-12] MEDS: ACETAMINOPHEN 500 MG TAB PO SCH (13:55)
[2024-06-12] MEDS: ASCORBIC ACID 500 MG TAB PO SCH (16:55)
[2024-06-12] MEDS: ZINC SULFATE 220 MG CAPSULE PO SCH (16:55)
[2024-06-12] MEDS: FERROUS SULFATE 325 MG TAB PO SCH (16:55)
[2024-06-12] MEDS: ONDANSETRON INJ 2 MG/ML 2 ML VIAL IV PRN (17:27)
[2024-06-12] MEDS: ceFAZolin 1000MG 1,000 MG/7.5 ML SYR IV SCH (17:52)
[2024-06-12] MEDS: HYDROCODONE/ACETAMOPHEN 5/325MG TAB PO PRN (19:29)
[2024-06-12] MEDS: CHOLECALCIFEROL 25 MCG (1000 UNITS) TAB PO SCH (20:04)
[2024-06-12] MEDS: SIMVASTATIN 20 MG TAB PO SCH (20:05)
[2024-06-12] MEDS: SENNA 8.6 MG TAB PO SCH (20:05)
[2024-06-13 02:59] VITALS: BP 118/70; TEMP 98.1
[2024-06-13 06:02] LABS: Hematocrit (blood only) 36.2 % (37.0-47.0); Hemoglobin 11.8 g/dl (12.0-16.0); Mean Corpuscular Hemoglobin 33.2 pg (25.0-34.0); Mean Corpuscular Hgb Conc 32.6 g/dL (32.0-36.0); Mean Platelet Volume 11.1 fL (9.4-12.4); Platelet Count 141 K/uL (130-400); RDW Coefficient of Variation 13.9 % (11.5-14.5); RDW Standard Deviation 52.3 fL (36.4-46.3); Red Blood Count 3.55 M/uL (4.20-5.40); White Blood Count 6.35 K/ul (4.8-10.8)
[2024-06-13 06:18] LABS: BUN Creatinine Ratio 28.9 (10-20); Calcium 8.2 mg/dl (8.6-10.3); Creatinine Clr Calc Pharmacy 43.9 ml/min; Est GFR (African American) 63.9 ml/min; Est GFR (Non-African American) 55.2 ml/min; Potassium 4.6 mmol/L (3.5-5.1)
--- NOTE | 2024-06-13 06:25 | Orthopedic Progress Note ---
Date of Service June 13, 2024 Assessment & Plan Admission and Anticipated Discharge Date Admission Date: June 12, 2024 Orthopedic Progress Note POD #1 doing well; nausea with narcotic ;I discontinued them. vss.labs good. dressing clean and dry. doing well/dc after PT and dressing change by PA.
[2024-06-13 06:59] VITALS: PULSE 64; RESP 18; O2SAT 95
[2024-06-13] MEDS: METOCLOPRAMIDE HCL INJ 5 MG/ML 2 ML VIAL IV PRN (07:45)
[2024-06-13] MEDS: MAGNESIUM OXIDE 400 MG TAB PO SCH (08:28)
[2024-06-13] MEDS: CYANOCOBALAMIN (B-12) 500 MCG TABLET PO SCH (08:28)
[2024-06-13] MEDS: dexAMETHasone 4 MG TAB PO SCH (08:29)
[2024-06-13] MEDS: APIXABAN 2.5 MG TAB PO SCH (08:29)
== END 2024-06-13 10:02 | disposition home health service (06) ==
LOC: 3E 05:05 → ASU 05:05